=== PATIENT | female | born 1955 | race Caucasian/White ===

== ENCOUNTER 2019-08-08 11:18 | Outpatient (CLI) | payer OTHER, SELFPAY ==
--- NOTE | ~2019-08-08 | DEXA_ITS ---
Bone Density Report Name: Stacy Bush Age: 63 Sex: Female Ethnicity: White Date of : 1955 Indication: postmenopausal; height loss; inflammatory bowel disease; hysterectomy; Referring Provider: Shailesh, Ayleen Littlejohn Study: Bone densitometry was performed. Exam Date: August 08, 2019 Accession number: [id number] Bone Density: Region BMD T-score Z-score Classification AP Spine (L1-L4) 1.079 0.3 2.0 Normal Femoral Neck (Left) 0.651 -1.8 -0.3 Osteopenia Total Hip (Left) 0.821 -1.0 0.2 Normal Total Hip Bilateral Avg 0.863 -0.7 0.5 Normal Femoral Neck (Right) 0.763 -0.8 0.7 Normal Total Hip (Right) 0.904 -0.3 0.8 Normal World Health Organization criteria for BMD impression classify patients as: Normal (T-score at or above -1.0), Osteopenia (T-score between -1.0 and -2.5), or Osteoporosis (T-score at or below -2.5). 10-year Fracture Risk(1): Major Osteoporotic Fracture 8.8% Hip Fracture 1.1% Reported Risk Factors: [place] (), Neck BMD=0.651, BMI=22.5 (1) FRAX(R) Version 3.08. Fracture probability calculated for an untreated patient. Fracture probability may be lower if the patient has received treatment. Clinical Information Provided by Patient: Has the following medical conditions: Inflammatory bowel diseases, Hysterectomy Patient maximum height was 68 Menopause Age: 37 No regular weight bearing exercise Does not regularly consume dairy products Drinks caffeinated beverages Onset of menses at age 18 Number of children 3 Impression: The patient has low bone mass, based on the Left Femoral Neck T-score. The patient has an estimated ten-year risk of hip fracture of 1.1% and an estimated ten-year risk of major fracture of 8.8%, based on the WHO FRAX algorithm. Discussion: BONE DENSITY IS LOW AT ONE OR MORE SKELETAL SITES. This patient's lowest T-score is low at one or more skeletal sites. It meets the World Health Organization's (WHO) criteria for ?low bone mass? (T-score between -1.0 and -2.5). The patient's 10-year risk of fracture as calculated by FRAX is less than the threshold where pharmacological therapy is recommended by the National Osteoporosis Foundation (NOF). However, all treatment decisions require clinical judgment and consideration of individual patient factors, including patient preferences, comorbidities, previous drug use, risk factors not captured in the FRAX model (e.g., frailty, falls, vitamin D deficiency, increased bone turnover, interval significant decline in bone density) and possible under or overestimation of fracture risk by FRAX. The patient should follow a healthful lifestyle (good nutrition with adequate calcium and vitamin D, and appropriate weight-bearing exercise). Follow-Up: Consider repeating this study in 2 to 3 years to reassess this patient's
--- NOTE | ~2019-08-08 | MMUS_ITS ---
EXAMINATION: MM diagnostic yessenia BI w bharat, US breast BI complete HISTORY: Breast pain. Palpable nodules. TECHNIQUE: Additional 3-D tomosynthesis images of the breasts were performed and synthetic 2-D images were generated. CAD analysis was submitted and interpreted. High resolution bilateral breast ultraso und was performed. COMPARISON: None FINDINGS: MAMMOGRAPHIC FINDINGS: Breast composed of scattered areas of fibroglandular density. Architectural distortion in either juan m st to suggest malignancy. ULTRASOUND: Right breast ultrasound: In the upper outer quadrant of the right breast there is a 3 mm cyst. Also in the upper outer quadran t there is a 6 mm intramammary lymph node. Left breast ultrasound: Normal heterogeneous echotexture without focal solid or cystic mass. IMPRESSION: 1. No mammographic or sonographic evidence for malignancy in either breast. 2. Routine yearly screening mammogram and regular clinical breast examination are recommended. BI-RADS Category 2: Benign finding(s). Reviewed, dictated and finalized at location A. IMPRESSION: 1. No mammographic or sonographic evidence for malignancy in either breast. 2. Routine yearly screening mammogram and regular clinical breast examination a re recommended. BI-RADS Category 2: Benign finding(s).
== END 2019-08-08 11:19 | disposition home or self-care (01) ==
PROVIDERS: PCP Family Medicine Adolescent Medicine; Visit Provider Nurse Practitioner Obstetrics & Gynecology
DX: N64.4 Mastodynia (principal); Z13.820 Encounter for screening for osteoporosis; M85.852 Other specified disorders of bone density and structure, left thigh
CPT/HCPCS: 76641; 77062; 77066; 77080; G0279

== ENCOUNTER 2019-10-11 02:56 | Inpatient (IN) | payer OTHER, SELFPAY ==
--- NOTE | ~2019-10-11 | XR_ITS ---
EXAMINATION: XR abdomen NG/feed tube insert DATE: 10/11/2019 06:21 INDICATION: Nasogastric tube placement TECHNIQUE: A supine view of the abdomen and lower chest was obtained for evaluation of feeding tube placement. COMPARISON: None. FINDINGS: Nasogastric tube with tip in proximal side port in the body of the stomach. Biliary stent and cholecy stectomy clips project over the right upper quadrant. Gas-filled loops of bowel which do not appear f rankly dilated in the abdomen and visualized upper pelvis. Some excreted contrast is seen at the bila teral renal collecting systems from earlier contrast-enhanced CT. Visualized lungs are clear. No pleu ral effusion. Heart size is normal. IMPRESSION: 1. Nasogastric tube in the stomach. Reviewed, dictated and finalized at location A.
--- NOTE | ~2019-10-11 | XR_ITS ---
EXAMINATION: XR abdomen/kub 1V DATE: 10/13/2019 06:07 INDICATION: Small bowel obstruction. TECHNIQUE: A supine view of the abdomen was obtained. COMPARISON: 10/12/2019 FINDINGS: Oral contrast has advanced and is now distributed throughout the colon to the rectum. No appreciable residual oral contrast material within the small bowel. There are a few persistent gas-filled but not frankly dilated loops of small bowel in the left abdomen. Cholecystectomy clips and biliary stent in the right upper quadrant. IMPRESSION: 1. A few gas-filled but not frankly dilated loops of small bowel with oral contrast having now advanc ed in a delayed manner into the colon consistent with either ileus or partial small bowel obstruction . Reviewed, dictated and finalized at location A. IMPRESSION: 1. A few gas-filled but not frankly dilated loops of small bowel with oral cont rast having now advanced in a delayed manner into the colon consistent with eit her ileus or partial small bowel obstruction.
--- NOTE | ~2019-10-11 | XR_ITS ---
EXAMINATION: XR abdomen obstructive series DATE: 10/11/2019 14:47 INDICATION: Epigastric abdominal pain. TECHNIQUE: Upright and supine views of the abdomen were obtained. COMPARISON: CT abdomen and pelvis 10/11/2019 FINDINGS: There are multiple dilated loops of small bowel. The colon is decompressed. There is an int ernal biliary stent in expected position. Surgical clips in the right upper quadrant are likely from cholecystectomy. The nasogastric tube tip is in the stomach. No free intraperitoneal gas. IMPRESSION: 1. Persistently dilated small bowel, consistent with small bowel obstruction. Reviewed, dictated and finalized at location B.
--- NOTE | ~2019-10-11 | CT_ITS ---
EXAMINATION: CT abdomen pelvis w con DATE: 10/11/2019 04:25 INDICATION: Left upper quadrant abdominal pain. TECHNIQUE: Computed tomography (CT) of the abdomen and pelvis was performed with 100 mL Omnipaque 350 intravenous contrast. Automated exposure control and iterative reconstruction technique were employe d. The dose-length product was 292.36 mGy-cm. COMPARISON: CT abdomen 03/27/2008 FINDINGS: The visualized portions of the lung bases demonstrate mild atelectasis. No pleural effusion . The heart size is normal. No pericardial effusion. There is a 10 mm cyst in the liver. There is a 1 2 mm lesion of low attenuation in right hepatic lobe. Pneumobilia is noted. There is an internal bili nani stent in expected position. The pancreas, spleen, and adrenal glands are normal. There is a 3 mm stone in right kidney. There are cysts in left kidney measuring up to 15 mm. There is diverticulosis of the colon without evidence of diverticulitis. The appendix is not visualized. There are multiple d ilated loops of small bowel containing desiccated stool with focal transition point in the pelvis at a small bowel anastomosis. The colon is decompressed. There are no pathologically enlarged lymph node s. There is no free intraperitoneal fluid. There is severe lumbar spondylosis. IMPRESSION: 1. Small bowel obstruction. 2. 12 mm lesion of low attenuation in right hepatic lobe, which may be benign or less likely malignan t. Abdomen MRI without and with contrast is recommended. Reviewed, dictated and finalized at location B. IMPRESSION: 1. Small bowel obstruction. 2. 12 mm lesion of low attenuation in right hepatic lobe, which may be benign o r less likely malignant. Abdomen MRI without and with contrast is recommended.
--- NOTE | ~2019-10-11 | XR_ITS ---
EXAMINATION: XR abdomen obstructive series DATE: 10/12/2019 11:04 INDICATION: Small bowel obstruction and vomiting TECHNIQUE: Frontal supine and upright views of the abdomen were obtained. COMPARISON: 10/11/2019 FINDINGS: Nasogastric tube tip in proximal side port in the body of the stomach. Biliary stent and cholecystect oz clips in the right upper quadrant. There are several loops of dilated gas-filled small bowel in t he abdomen consistent with small bowel obstruction. Small amount of gas and stool scattered throughou t the colon. No free intraperitoneal gas. Lung bases are clear. Heart size is normal. Mild lumbar lev oscoliosis with moderate to severe spondylosis. IMPRESSION: 1. Persistent dilated small bowel consistent with small bowel obstruction. Reviewed, dictated and finalized at location A.
--- NOTE | ~2019-10-11 | XR_ITS ---
EXAMINATION: XR sm bowel follow through WS EXAM DATE: 10/12/2019 19:01 INDICATION: Small bowel obstruction. TECHNIQUE: [employer]ist radiograph was acquired. Small bowel series was performed with water-soluble solut ion. Spot images of the terminal ileum were acquired. There is no prior study for comparison. FINDINGS: There are cholecystectomy clips. There is a biliary stent and a nasogastric tube through wh ich the contrast was injected. On the 15 minute projection contrast is seen within the stomach and no rmal calibered proximal jejunum. At 30 minutes time, contrast beginning to enter significantly disten ded mid jejunal loops which continue to opacify to 6.5 hours time, at which time the study was ended. No normal calibered ileum was identified during dose 6.5 hours, and no contrast within the colon. IMPRESSION: Small bowel obstruction. Consider KUB in the morning. Reviewed, dictated and finalized at location A.
[2019-10-11 02:58] VITALS: BP 140/79; PULSE 91; RESP 24; TEMP 36.9; O2SAT 100
--- NOTE | 2019-10-11 03:15 | ED.ABDPAIN ---
HPI - Abdominal Pain General Chief Complaint: Abdominal Pain Stated Complaint: abdominal pain Time Seen by Provider: 10/11/19 03:03 History of Present Illness HPI narrative: Left sided abdominal pain radiating into the pelvis for the past couple of hours. Associated with severe nausea. She has had prior episodes, but denies further evaluation. She does report chronic abdominal issues. She recently had stents placed in the pancreatic duct(s) on both sides . No constipation, diarrhea, fever. Related Data Home Medications Medication Instructions Recorded Confirmed gabapentin 300 mg PO TID 10/11/19 Allergies Allergy/AdvReac Type Severity Reaction Status Date / Time No Known Allergies Allergy Unknown Verified 10/11/19 04:07 Review of Systems Review of Systems: All systems reviewed & are unremarkable except as noted in HPI and below Constitutional: Constitutional: Denies fever(s) Cardiovascular: Cardiovascular: Denies chest pain Respiratory: Respiratory: Denies dyspnea Gastrointestinal: Gastrointestinal: Reports abdominal pain, Denies constipation, Denies diarrhea, Reports nausea and Denies vomiting Genitourinary: Genitourinary: Denies hematuria and Denies dysuria Musculoskeletal: Musculoskeletal: Denies back pain Neurologic: Denies dizziness and Denies weakness ON LICENSE OF [facility] Surgical History Surgical History History of appendectomy History of cholecystectomy Exam Const: General: no acute distress and alert Orientation/consciousness: patient oriented x3 HENMT: Head: normal to inspection Resp: Effort & Inspection: normal respiratory effort Auscultation: clear to auscultation bilaterally Cardio: Rate: regular rate Rhythm: regular rhythm GI: Inspection: non-distended GI Palp: Yes Soft to palpation, Yes Tenderness to palpation present (GI) (LUQ), No Guarding due to palpation present (GI) and No Rebound tenderness present Skin: General skin exam: normal color Neuro: General: patient oriented x3, moves all extremities and CN's II-XI intact bilaterally Speech: normal speech Extrem: General: normal to inspection Course Vital Signs Vital signs: Vital Signs Temperature 36.9 C 10/11/19 02:58 Pulse Rate 91 10/11/19 02:58 Respiratory Rate 24 H 10/11/19 02:58 Blood Pressure 140/79 10/11/19 02:58 Pulse Oximetry 100 10/11/19 02:58 Temperature 36.9 C 10/11/19 02:58 Pulse Rate 61 08/12/20 06:00 Respiratory Rate 14 10/11/19 06:00 Blood Pressure 109/58 L 10/11/19 06:00 Pulse Oximetry 98 10/11/19 06:00 MDM - Abdominal Pain Differential Diagnosis Differential diagnosis: Likely calculus of kidney, constipation, diverticulitis, pancreatitis and small bowel obstruction Medical Records Attestation: I reviewed the patient's medical records. Lab Data Attestation: I reviewed the patient's lab results. Result diagrams: 10/11/19 03:38 10/11/19 03:38 Labs: Lab Results 10/11/19 10/11/19 10/11/19 Range/Units 03:38 03:38 04:09 WBC 9.6 (4.5-10.0) K/mm3 RBC 4.64 (4.2-5.4) M/mm3 Hgb 14.3 (12.0-15.0) g/dL Hct 42.5 (37.0-47.0) % MCV 91.6 (80-100) fl MCH 30.8 (26-34) pg MCHC 33.6 (32-36) g/dl RDW 11.5 (11.5-14.5) % Plt Count 263 (150-375) k/mm3 MPV 10.3 (7.4-10.4) fl Immature Gran % (Auto) 0.3 (0-0.5) % Neut % (Auto) 74.4 H (45.5-73.1) % Lymph % (Auto) 16.8 L (18.3-44.2) % Story % (Auto) 6.5 (2.6-8.5) % Eos % (Auto) 1.5 (0-4.4) % Baso % (Auto) 0.5 (0.2-1.2) % Lymph # (Auto) 1.61 (0.9-3.2) K/mm3 Story # (Auto) 0.6 (0.1-0.6) K/mm3 Eos # (Auto) 0.1 (0-0.3) K/mm3 Baso # (Auto) 0.1 (0.0-0.1) K/mm3 Abs Immat Gran (auto) 0.03 (0.00-0.031) K/mm3 Absolute Neuts (auto) 7.1 H (1.3-6.7) K/mm3 Absolute Nucleated RBC 0.0 (0.0-0.012) K/mm3 Nucleated RBC % 0.0 (0.0-0.2) % Sodium 139 (137-1
[2019-10-11 03:45] LABS: Basophils Absolute Auto 0.1 K/mm3 (0.0-0.1); Basophils Percent Auto 0.5 % (0.2-1.2); Eosinophils Absolute Auto 0.1 K/mm3 (0-0.3); Eosinophils Percent Auto 1.5 % (0-4.4); Hematocrit 42.5 % (37.0-47.0); Hemoglobin 14.3 g/dL (12.0-15.0); Immature Granulocyte Absolute 0.03 K/mm3 (0.00-0.031); Immature Granulocyte Percent A 0.3 % (0-0.5); Lymphocytes Absolute Auto 1.61 K/mm3 (0.9-3.2); Lymphocytes Percent Auto 16.8 % (18.3-44.2); Mean Corpuscular HGB Conc 33.6 g/dl (32-36); Mean Corpuscular Hemoglobin 30.8 pg (26-34); Mean Corpuscular Volume 91.6 fl (80-100); Mean Platelet Volume 10.3 fl (7.4-10.4); Monocytes Absolute Auto 0.6 K/mm3 (0.1-0.6); Monocytes Percent Auto 6.5 % (2.6-8.5); Neutrophils Absolute Auto 7.1 K/mm3 (1.3-6.7); Neutrophils Percent Auto 74.4 % (45.5-73.1); Platelet Count Result 263 k/mm3 (150-375); Red Blood Count 4.64 M/mm3 (4.2-5.4); Red Cell Distribution Width 11.5 % (11.5-14.5); White Blood Count 9.6 K/mm3 (4.5-10.0)
[2019-10-11 04:04] LABS: Alanine Aminotransferase 52 U/L (4-35); Albumin Level 4.6 g/dL (3.5-5.1); Alkaline Phosphatase 97 U/L (38-126); Anion Gap 11 mmol/L (8-16); Aspartate Amino Transferase 33 U/L (14-36); Bilirubin,Total 0.8 mg/dL (0.2-1.3); Blood Urea Nitrogen 16 mg/dL (7-17); Calcium 9.6 mg/dL (8.4-10.2); Carbon Dioxide 25 mmol/L (22-30); Chloride 103 mmol/L (98-107); Estimated CRCL calculation 53 ml/min; Estimated Glomerular Filt Rate > 60; Glucose 144 mg/dL (65-105); Lipase 117 U/L (23-300); Potassium 3.8 mmol/L (3.4-5.0); Sodium 139 mmol/L (137-145)
[2019-10-11 04:21] LABS: Add Urine Microscopic? YES; Appearance Urine Clear (Clear); Bilirubin Urine Negative (Negative); Blood Urine Negative (Negative); Color Urine Straw (Yellow); Glucose Urine UA Negative (Negative); Ketones Urine Negative (Negative); Leukocyte Esterase Ur 1+ LEU/UL (Negative); Nitrate Urine Negative (Negative); Protein Urine Negative (Negative); RBC Urine 0-2 /hpf (0-2); Specific Grav Ur 1.013 (1.001-1.035); Squamous Epithelial Cell Urine Rare /hpf (Few); WBC Urine 0-3 /hpf
[2019-10-11 05:00] VITALS: BP 119/65; PULSE 69; RESP 18; O2SAT 100
[2019-10-11] MEDS: MORPHINE SULFATE 4 MG/ML INJ IV PUSH ×4 (05:45→19:44)
[2019-10-11] MEDS: LIDOCAINE HCL 2% VISC SOLN 15 ML UDC (05:45)
[2019-10-11] MEDS: BENZOCAINE/TETRACAINE SPRAY (*SP) 56 ML AEROSOL 1 SPRAY (05:46)
[2019-10-11] MEDS: ONDANSETRON INJ 4 MG/2 ML VIAL (05:59)
[2019-10-11 06:00] VITALS: BP 109/58; PULSE 61; RESP 14; O2SAT 98
[2019-10-11] MEDS: SODIUM CHLORIDE 0.9% IV 1,000 ML 1000 ML (06:15)
--- NOTE | 2019-10-11 07:04 | ADMGEN ---
This patient, Stacy Bush, was admitted to Medical Room 341-01. Patient/family oriented to hospital policies and general routines including ID bracelet, bed and alarms, visiting hours, pain management, procedures, bathroom and other care routines, personal items, smoking policy, room service/diet, and visiting hours. Valuables list has been completed. Information on how to activate the Rapid Response Team has been discussed. Patient/Family are encouraged to report perceived risks to care and to ask questions if they do not understand what they are told or what they should do.
[2019-10-11 07:14] VITALS: BP 136/64; PULSE 76; RESP 18; TEMP 36.9; O2SAT 100; BMI 22.4
[2019-10-11] MEDS: LACTATED RINGERS 1,000 ML 100 ML IV CONT ×2 (08:25→19:22)
[2019-10-11] MEDS: GABAPENTIN 300 MG CAPSULE PO ×2 (12:10→16:58)
[2019-10-11 14:00] VITALS: BP 132/68; PULSE 78; RESP 18; TEMP 36.8; O2SAT 100
--- NOTE | 2019-10-11 14:57 | PM.IMHP ---
H&P: HPI History of Present Illness Date/Time: 10/11/19 07:57 Chief complaint: sbo Narrative: Stacy Bush is a 63 year old female Who presented early this morning to the [place] emergency room with complaints of upper abdominal pain. Patient states that she had a fairly normal supper last night eating green beans and roasted potatoes. She was feeling all okay when she had supper but subsequently woke up in the middle the night with fairly severe abdominal pain across the mid abdomen into the left upper quadrant. Because of this pain she came to the emergency room. She complained mostly ofLeft sided abdominal pain radiating into the pelvis for the past couple of hours. This was associated with severe nausea. She has had prior episodes, but denies further evaluation. She does report chronic abdominal issues. She recently had stents placed in the pancreatic duct(s) on both sides . No constipation, diarrhea, fever. Also significant to note is that the patient states that she has been having some trouble with biliary stenosis ever since her laparoscopic cholecystectomy in 2012. She sees Dr. Garcia [facility]. Apparently he has been periodically placing biliary stent or pancreatic stents. She currently had 1 placed in July of this year and this time she is planning have it left in for 6-8 weeks. She has another appointment with him on around October 22. Review of Systems Constitutional: Constitutional: Reports as per HPI and Denies headache(s) Eyes: Eyes: Denies loss of vision and Denies eye pain ENT: Reports Normal hearing present, Denies change in voice, Denies dizziness and Denies headache(s) Cardiovascular: Cardiovascular: Denies chest pain and Denies dyspnea Respiratory: Respiratory: Denies dyspnea and Denies wheezing Gastrointestinal: Gastrointestinal: Reports as per HPI, Reports abdominal pain, Denies melena, Denies hematochezia, Denies constipation, Reports GI cramping, Denies dysphagia, Reports loose stools ( Yesterday she had pretty significant black loose stools), Reports nausea and Denies odynophagia Musculoskeletal: Musculoskeletal: Denies back pain and Denies arthralgias Neurologic: Reports Normal hearing present, Denies dizziness, Denies headache(s), Denies loss of vision and Denies memory loss Psychiatric: Psychiatric: Denies memory loss and Denies panic attacks Endocrine: Endocrine: Reports no additional endocrine complaints Hematologic/Lymphatic: Hematologic/Lymphatic: Reports no additional hematologic/lymphatic complaints Allergic/Immunologic: Allergic/Immunologic: Denies wheezing PMFSH Past Medical History Medical History (Updated 10/11/19 @ 15:09 by Xavier Blcak MD) Biliary stenosis (03/01/12) Surgical History Surgical History (Updated 10/11/19 @ 15:08 by Xavier Black MD) History of appendectomy History of cholecystectomy History of hysterectomy for benign disease Social History Social History Smoking status: Never smoker Alcohol intake: never Substance use: never Spiritual care concerns: No Meds Home Medications and Allergies Home Medications Medication Instructions Recorded Confirmed Type gabapentin 300 mg PO TID 10/11/19 10/11/19 History Allergies Allergy/AdvReac Type Severity Reaction Status Date / Time No Known Allergies Allergy Unknown Verified 10/11/19 04:07 Vital Signs Vital Signs - 24 hr 10/11/19 02:58 10/11/19 05:00 10/11/19 06:00 Temperature 36.9 C Pulse Rate 91 69 61 Respiratory Rate 24 H 18 14 Blood Pressure 140/79 119/65 109/58 L Pulse Oximetry 100 100 98 10/11/19 07:14 10/11/19 14:00 Temperature 36.9 C 36.8 C Pulse Rate 76 78 Respiratory Rate 18 18 Blood Pressure 136/64 132/68 Pulse Oximetry 100 100 Exam Const: General: cooperative, no acute distress, well developed, alert and awake Nutritional Appearance: well nourished Orientatio
[2019-10-11 16:21] VITALS: BMI 22.4
[2019-10-11 16:30] VITALS: BMI 22.4
--- NOTE | 2019-10-11 17:27 | PCDIET ---
Nutrition Follow-Up Complete: Altered GI fx r/t removal of gallbladder and rounds of antibiotics as evidence by loss of oral tolerance of foods, need for low fodmap diet, bloating, gas, diarrhea with foods Diet advancement with better PO tolerance Additional Notes: Pt on low fodmap for six years, shortly after removal of gallbladder. Never went back to MD and has been on diet since. Continues to loose foods she once tolerated. Does not do dairy, gluten, or sugar, even fruit sugar. C/O foul gas, bloating, diarrhea. States it was a stressful time over these last several years as pt was caring for sick and mother in law who are now passes. No hx of autoimmune in family. Not sure of blood test for celiac. No testing for SIBO, although pt has has had hx of surgeries and antibiotic use. Recommend r/o celiac and SIBO if not done Agree with NPO diet. Pt may benefit from digestive enzymes with loss of gallbladder. Following diet, PO intake and tolerance, wt every three days
[2019-10-11] MEDS: MAGNESIUM HYDROXIDE SUSP 30 ML UDC FEED TUBE (17:34)
[2019-10-11] MEDS: ONDANSETRON INJ 4 MG/2 ML VIAL IV PUSH (18:10)
[2019-10-11 22:00] VITALS: BP 108/62; PULSE 72; RESP 18; TEMP 36.1; O2SAT 100
[2019-10-12] MEDS: ONDANSETRON INJ 4 MG/2 ML VIAL IV PUSH ×4 (04:01→18:22)
[2019-10-12 04:21] VITALS: BP 114/71; PULSE 102; RESP 18; TEMP 37.1; O2SAT 100
[2019-10-12] MEDS: LACTATED RINGERS 1,000 ML 100 ML IV CONT ×2 (05:27→15:31)
[2019-10-12 06:04] LABS: Basophils Percent Auto 0.2 % (0.2-1.2); Hematocrit 40.7 % (37.0-47.0); Hemoglobin 13.9 g/dL (12.0-15.0); Immature Granulocyte Absolute 0.03 K/mm3 (0.00-0.031); Immature Granulocyte Percent A 0.3 % (0-0.5); Lymphocytes Absolute Auto 0.81 K/mm3 (0.9-3.2); Lymphocytes Percent Auto 7.3 % (18.3-44.2); Mean Corpuscular HGB Conc 34.2 g/dl (32-36); Mean Corpuscular Hemoglobin 31.4 pg (26-34); Mean Corpuscular Volume 92.1 fl (80-100); Mean Platelet Volume 10.6 fl (7.4-10.4); Monocytes Absolute Auto 0.8 K/mm3 (0.1-0.6); Monocytes Percent Auto 7.4 % (2.6-8.5); Neutrophils Absolute Auto 9.4 K/mm3 (1.3-6.7); Neutrophils Percent Auto 84.8 % (45.5-73.1); Platelet Count Result 254 k/mm3 (150-375); Red Blood Count 4.42 M/mm3 (4.2-5.4); Red Cell Distribution Width 11.7 % (11.5-14.5); White Blood Count 11.1 K/mm3 (4.5-10.0)
[2019-10-12 06:15] LABS: Lactic Acid 1.3 mmol/L (0.7-2.1)
[2019-10-12 06:16] LABS: Anion Gap 6 mmol/L (8-16); Blood Urea Nitrogen 15 mg/dL (7-17); Calcium 8.5 mg/dL (8.4-10.2); Carbon Dioxide 28 mmol/L (22-30); Chloride 103 mmol/L (98-107); Estimated CRCL calculation 66 ml/min; Estimated Glomerular Filt Rate > 60; Glucose 125 mg/dL (65-105); Magnesium 1.9 mg/dL (1.6-2.3); Potassium 3.9 mmol/L (3.4-5.0); Sodium 137 mmol/L (137-145)
[2019-10-12] MEDS: GABAPENTIN 300 MG CAPSULE PO (08:16)
[2019-10-12] MEDS: MORPHINE SULFATE 4 MG/ML INJ 2 MG IV PUSH (08:32)
--- NOTE | 2019-10-12 11:55 | PM.PNGS ---
Progress Note: A&P Assessment and Plan (1) SBO (small bowel obstruction): Onset Date: 10/11/19 Code(s): K56.609 - Unspecified intestinal obstruction, unspecified as to partial versus complete obstruction Status: Acute Assessment and Plan: today's plain abdominal film shows still some dilated loops of small bowel in the central abdomen. This is different than yesterday so will proceed to a Gastrografin small-bowel follow-through. This should delineate whether not there is complete obstruction or not. Patient knows that if this does not go through to the colon we may need to proceed to surgical intervention. Explained that I would start out doing laparoscopy and see if we could proceed to free up the small bowel in the pelvis with this. If not she may need a laparotomy and I would typically start the umbilicus and go down to the pubic bone for the incision. Await results of small-bowel follow-through through the NG tube (2) Biliary stenosis: Onset Date: 03/01/12 Code(s): K83.1 - Obstruction of bile duct Status: Acute Assessment and Plan: Patient scheduled to follow up with her hvac service manager regarding this in approximately 1 - 2 weeks. Stent is in appropriate location on the CT scan. Liver function tests done on admission were normal except for slightly elevated AST. Subjective Subjective Date/Time Seen: 10/12/19 11:55 Patient states that she slept well last night but woke up with cramping in the abdomen for a.m. this morning. She states that once she gets pain medicine gets comfortable she sleeps for a good long time but then still has pain across her upper mid back somewhat exactly posterior to the epigastrium. Patient did not have any bowel movements overnight despite milk a magnesia down the NG tube last evening. She states she has not felt well enough to walk in the hallway she could barely walk to the bathroom. Review of Systems Constitutional: Constitutional: Reports no additional constitutional complaints ENT: Reports other (Mucous Membranes moist.) Cardiovascular: Cardiovascular: Denies dyspnea Respiratory: Respiratory: Denies pain on inspiration and Denies dyspnea Gastrointestinal: Gastrointestinal: Reports constipation, Reports GI cramping, Denies dysphagia and Denies nausea Comments: Patient states she does not feel bloated. Musculoskeletal: Musculoskeletal: Reports other (No calf swelling or edema) Integumentary/Breasts: Skin/Breast: Reports system reviewed and no additional complaints, except as docu Exam Const: General: cooperative, no acute distress, alert and awake Orientation/consciousness: patient oriented x3 HENMT: Mouth: Yes moist mucous membranes Neck: Neck: normal visual inspection Chest: Chest palpation & inspection: normal inspection of the chest Resp: Effort & Inspection: normal respiratory effort Auscultation: clear to auscultation bilaterally Cardio: Jugular venous distension: no JVD Rate: regular rate Rhythm: regular rhythm GI: Inspection: normal to inspection and scar ( Right lower quadrant from appendectomy) GI Palp: No abdominal tenderness, Yes Soft to palpation, No Tenderness to palpation present (GI) and No Hernia present Auscultation: normal bowel sounds Rectal Exam: deferred Neuro: General: patient oriented x3 and moves all extremities Speech: normal speech Extrem: General: normal exam except as noted Psych: Mental Status: mental status grossly normal Speech and movement: Normal speech and movement present Affect: normal affect Thought content: Yes Normal thought content present Objective Data Vital Signs Vital Signs: Vital Signs - 24 hr 10/11/19 14:00 10/11/19 22:00 10/12/19 04:21 Temperature 36.8 C 36.1 C L 37.1 C Pulse Rate 78 72 102 H Respiratory Rate 18 18 18 Blood Pressure 132/68 108/62 114/71 Pulse Oximetry 100 100 100 Intake/Output Intake/Output: Intake & Output 10/09/1910/09
[2019-10-12] MEDS: MORPHINE SULFATE 4 MG/ML INJ IV PUSH ×2 (14:06→17:17)
[2019-10-12 15:36] VITALS: BP 122/72; PULSE 80; RESP 16; TEMP 36.8; O2SAT 98
[2019-10-12 20:09] VITALS: BP 125/57; PULSE 74; RESP 16; TEMP 36.9; O2SAT 98
[2019-10-12] MEDS: PANTOPRAZOLE SODIUM IV 40 MG VIAL IV PUSH (20:30)
[2019-10-12] MEDS: LACTATED RINGERS 1,000 ML 150 ML IV CONT (23:02)
--- NOTE | 2019-10-13 | ECG_ITS ---
Measurements Intervals [place] Rate: 70 P: 63 [place]: 155 QRS: -20 QRSD: 96 T: -2 QT: 367 QTc: 397 Interpretive Statements SINUS RHYTHM DELAYED PRECORDIAL R/S TRANSITION CONSIDER INFERIOR INFARCT, AGE INDETERMINATE ABNORMAL ECG Electronically Signed On 10-13-2019 7:10:15 CDT by Saad Salcido D.O.
[2019-10-13 05:43] LABS: Basophils Percent Auto 0.5 % (0.2-1.2); Eosinophils Absolute Auto 0.1 K/mm3 (0-0.3); Eosinophils Percent Auto 0.8 % (0-4.4); Hematocrit 37.7 % (37.0-47.0); Hemoglobin 12.5 g/dL (12.0-15.0); Immature Granulocyte Absolute 0.03 K/mm3 (0.00-0.031); Immature Granulocyte Percent A 0.3 % (0-0.5); Lymphocytes Absolute Auto 1.37 K/mm3 (0.9-3.2); Lymphocytes Percent Auto 15.6 % (18.3-44.2); Mean Corpuscular HGB Conc 33.2 g/dl (32-36); Mean Corpuscular Hemoglobin 31.2 pg (26-34); Mean Platelet Volume 10.5 fl (7.4-10.4); Monocytes Absolute Auto 0.9 K/mm3 (0.1-0.6); Monocytes Percent Auto 10.2 % (2.6-8.5); Neutrophils Absolute Auto 6.4 K/mm3 (1.3-6.7); Neutrophils Percent Auto 72.6 % (45.5-73.1); Platelet Count Result 204 k/mm3 (150-375); Red Blood Count 4.01 M/mm3 (4.2-5.4); Red Cell Distribution Width 11.8 % (11.5-14.5); White Blood Count 8.8 K/mm3 (4.5-10.0)
[2019-10-13] MEDS: LACTATED RINGERS 1,000 ML 150 ML IV CONT ×2 (05:51→12:53)
[2019-10-13 06:06] LABS: Lactic Acid 0.7 mmol/L (0.7-2.1)
[2019-10-13 06:09] LABS: Alanine Aminotransferase 27 U/L (4-35); Albumin Level 2.9 g/dL (3.5-5.1); Alkaline Phosphatase 56 U/L (38-126); Anion Gap 3 mmol/L (8-16); Aspartate Amino Transferase 19 U/L (14-36); Bilirubin,Total 0.9 mg/dL (0.2-1.3); Blood Urea Nitrogen 20 mg/dL (7-17); Calcium 8.1 mg/dL (8.4-10.2); Carbon Dioxide 30 mmol/L (22-30); Chloride 105 mmol/L (98-107); Estimated CRCL calculation 59 ml/min; Estimated Glomerular Filt Rate > 60; Glucose 96 mg/dL (65-105); Potassium 3.9 mmol/L (3.4-5.0); Sodium 138 mmol/L (137-145)
[2019-10-13 06:16] VITALS: BP 126/58; PULSE 77; RESP 16; TEMP 36.7; O2SAT 96
[2019-10-13] MEDS: GABAPENTIN 300 MG CAPSULE PO ×3 (08:34→16:07)
[2019-10-13] MEDS: MAGNESIUM HYDROXIDE SUSP 30 ML UDC FEED TUBE (08:34)
[2019-10-13] MEDS: PANTOPRAZOLE SODIUM IV 40 MG VIAL IV PUSH ×2 (08:34→20:46)
--- NOTE | 2019-10-13 09:34 | PM.PNGS ---
Progress Note: A&P Assessment and Plan (1) SBO (small bowel obstruction): Onset Date: 10/11/19 Code(s): K56.609 - Unspecified intestinal obstruction, unspecified as to partial versus complete obstruction Status: Acute Assessment and Plan: Today's plain abdominal film shows still some dilated loops of small bowel in the central abdomen But that the GI contrast got through to the colon in a delayed fashion. (See report). Because of this and the patient feeling better we will proceed with clamping the NG tube. I will give her 1 dose of milk of magnesia through the NG tube now. Will have the nurse give her of duplex suppository to see if we can get something started from the rectal side. Will have the patient be up and about more now that she is more comfortable. Patient will void pain medicine if possible. Will have the tissue in talked to the patient about a low-fiber diet is this is what we would send her home on. Will check back at around noon with the patient and nurse and if doing well consider removal of the NG tube in advancing the diet. We probably will not go home until tomorrow at the earliest. 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 I will try to forward records from and labs from this visit along with CT reports to the GI doctor in the [place] area. Stent is in appropriate location on the CT scan. Liver function tests done on admission were normal except for slightly elevated AST. Subjective Subjective Date/Time Seen: 10/13/19 07:34 Patient states that late evening 9 or 10:00 p.m. last night she began feeling better. She is not specifically notice passing flatus or having a bowel movement overnight. I talked to her night nurse and she states that she did not have take any pain medicine overnight. The patient has been up walking the halls where as she could do that before. Patient willing to take suppository this morning. And willing to try some liquids well the NG tube is clamped. Patient is on some dietary restrictions because of her continuing biliary problems. However, she believes she can limit the fiber in her diet and still have enough to eat. Review of Systems Constitutional: Constitutional: Reports as per HPI, Reports no additional constitutional complaints and Denies headache(s) Eyes: Eyes: Denies loss of vision and Denies eye pain ENT: Reports Normal hearing present, Denies change in voice, Denies dysphagia, Denies dizziness, Denies headache(s), Denies odynophagia and Reports other (Mucous Membranes moist.) Cardiovascular: Cardiovascular: Denies chest pain and Denies dyspnea Respiratory: Respiratory: Denies pain on inspiration, Denies dyspnea and Denies wheezing Gastrointestinal: Gastrointestinal: Denies abdominal pain, Denies belching, Reports constipation, Denies heartburn, Denies diarrhea and Reports vomiting ( X1 yesterday about an hour half after she received the Gastrografin dye ) Comments: vomiting: yes, X1 yesterday about an hour half after she received the Gastrografin dye through the NG tube. No more overnight. Genitourinary: Genitourinary: Denies hematuria and Denies nocturia Musculoskeletal: Musculoskeletal: Denies back pain, Denies arthralgias and Reports other (No calf swelling or edema) Integumentary/Breasts: Skin/Breast: Reports system reviewed and no additional complaints, except as docu Neurologic: Reports Normal hearing present, Denies dizziness, Denies headache(s), Denies loss of vision and Denies memory loss Psychiatric: Psychiatric: Denies memory loss and Denies panic attacks Endocrine: Endocrine: Reports no additional endocrine complaints Hematologic/Lymphatic: Hematologic/Lymphatic: Reports no additional hematologic/lymphatic complaint
--- NOTE | 2019-10-13 12:09 | PCNFU ---
Nutrition Follow-Up Complete: Altered GI fx r/t removal of gallbladder and rounds of antibiotics as evidence by loss of oral tolerance of foods, need for low fodmap diet, bloating, gas, diarrhea with foods Goal: Diet advancement with better PO tolerance Progressing towards goal. Pt current nutrition is Clear liquids. Nutrition recommendation: advance as tolerated to low fiber diet. Last recorded weight is 63 kg. Bowel Motility:10/12 +BM reported. Labs Reviewed:BUN 20, Alb 2.9 Meds Noted: Protonix,LR at 150 ml/hr Additional Notes: Patient educated on low fiber diet today. She did tolerate her clear liquids tray well. She discussed her weight loss with me of about 12 ibs since her surgery in August 2019. She states she has muscle milk at home and that she will start drinking that again for the additional protein and kcals. Monitoring: diet, PO intake and tolerance, wt every 5 days.
[2019-10-13 14:19] VITALS: BP 130/56; PULSE 74; RESP 14; TEMP 36.9; O2SAT 100
[2019-10-13] MEDS: ONDANSETRON INJ 4 MG/2 ML VIAL IV PUSH ×2 (17:53→22:12)
[2019-10-13 19:36] VITALS: BP 119/55; PULSE 73; RESP 16; TEMP 36.8; O2SAT 97
[2019-10-14] MEDS: ONDANSETRON INJ 4 MG/2 ML VIAL IV PUSH ×2 (02:28→07:36)
[2019-10-14 06:32] VITALS: BP 131/62; PULSE 75; RESP 16; TEMP 37.2; O2SAT 98
[2019-10-14 08:00] VITALS: PULSE 75; RESP 16; O2SAT 98
[2019-10-14] MEDS: PANTOPRAZOLE SODIUM IV 40 MG VIAL IV PUSH (08:09)
[2019-10-14] MEDS: GABAPENTIN 300 MG CAPSULE PO ×2 (09:16→12:53)
[2019-10-14 14:00] VITALS: BP 130/58; PULSE 75; RESP 18; TEMP 37.1; O2SAT 99
--- NOTE | 2019-10-14 14:14 | PM.DS ---
DS: Admitting Diagnosis Admitting Diagnosis Admitting Diagnosis: Partial small-bowel obstruction Indwelling biliary stent DS: Discharge Diagnosis Discharge Diagnosis (1) SBO (small bowel obstruction): Onset Date: 10/11/19 Code(s): K56.609 - Unspecified intestinal obstruction, unspecified as to partial versus complete obstruction Status: Acute Assessment and Plan: This resolved with conservative management including NG tube and bowel rest. (2) Biliary stenosis: Onset Date: 03/01/12 Code(s): K83.1 - Obstruction of bile duct Status: Acute Assessment and Plan: Patient follow with Dr. Baer in [place] regarding this. DS: Summary Hospital Course Reason for hospitalization: Partial small-bowel obstruction Hospital Course: patient had a fairly uneventful hospital course. She had an NG tube in for the 1st 2 days that she was here. Thus or small-bowel obstruction did not seem to be resolving completely I did a small bowel series with Gastrografin on her 2nd day in the hospital. This did not go through the normal amount of time but did go through by the following morning. She had bowel movements that 3rd day of hospitalization and had and significant proven in her symptoms. She was then advance slowly under diet and will send her home on a low residue diet. She talked to the dietitian about a low residue diet and has information on this. Also the night prior to discharge she had an episode which she describes as an her biliary attack symptoms period this is bloating in the upper left abdomen and discomfort radiating through to her back. I did take a check a lipase during admission and was normal. I wonder if this is some element of gastric outlet obstruction. Perhaps just functional with put pyloric spasm. Will send her home with [facility] and I asked her to try taking 1 of these if this happens again. She should then report what happens to her GI doctor in [place]( Dr. Ortiz). Status at Discharge Cognitive/behavioral status at discharge: normal Functional status at discharge: independent ambulation Overall status at discharge: patient is back to baseline Time Spent with Patient Time attestation: Total time spent providing and/or coordinating discharge services:32 min. Time spent: Greater than 30 minutes Specific discharge activities: Walking as much as possible for exercise. Diet to be low residue for least 1 week and then gradually advance. Instructed her to keep an appoint with Dr. Baer her GI doctor for her stent removal. I had then put all her radiology tests on a disc to be taken with her to his next appointment with him on October 22 or . Exam Const: General: cooperative, no acute distress, alert and awake Orientation/consciousness: patient oriented x3 HENMT: Mouth: Yes moist mucous membranes Eyes: General: appearance normal, both eyes and all related structures Other: not jaundice Neck: Neck: normal visual inspection and no JVD Lymphatic: lymphadenopathy not noted Chest: Chest palpation & inspection: normal inspection of the chest Resp: Effort & Inspection: normal respiratory effort Auscultation: clear to auscultation bilaterally Cardio: Jugular venous distension: no JVD Rate: regular rate Rhythm: regular rhythm GI: Inspection: scar ( Right lower quadrant scar from appendectomy) GI Palp: Yes Soft to palpation and No Guarding due to palpation present (GI) Auscultation: normal bowel sounds Rectal Exam: deferred Other: Port sites scars scattered on the abdomen from previous laparoscopy. Neuro: General: patient oriented x3 and moves all extremities Speech: normal speech Extrem: General: normal exam except as noted Psych: Mental Status: mental status grossly normal Speech and movement: Normal speech and movement present Affect: normal affect Thought content: Yes Normal thought content present DS: Data Data Completed and Pe
--- NOTE | 2019-10-14 14:42 | PC.NURSE ---
Addendum entered by Mary Roy RN 10/14/19 15:11: Only has a feeling of fullness. Original Note: Patient tolerated low residue diet for lunch with no problems noted.
== END 2019-10-14 15:45 | disposition home or self-care (01) | DRG 390 ==
LOC: ANHED 06:15 → ANH3MED 06:53
PROVIDERS: Admitting Provider Surgery; Emergency Provider Emergency Medicine; PCP Family Medicine Adolescent Medicine; Visit Provider Surgery
DX: K56.600 Partial intestinal obstruction, unspecified as to cause (principal); Z90.49 Acquired absence of other specified parts of digestive tract; Z90.710 Acquired absence of both cervix and uterus
CPT/HCPCS: 36415; 51701; 74018; 74019; 74177; 74250; 80048; 80053; 81001; 83605; 83690; 83735; 85025; 86850; 86900; 86901; 93005; 96361; 96374; 96375; 99285; A9270; C9113; G0378; J2270; J2405; J3010; J7030; J7120; Q9967

== ENCOUNTER 2019-10-15 13:41 | Inpatient (IN) | payer OTHER, SELFPAY ==
--- NOTE | ~2019-10-15 | CT_ITS ---
EXAMINATION: CT abdomen pelvis w con DATE: 10/15/2019 15:16 INDICATION: TECHNIQUE: Computed tomography (CT) of the abdomen and pelvis was performed without intravenous contr ast. Automated exposure control and iterative reconstruction technique were employed. Exam dose: 311 .93 mGy-cm total exam DLP. COMPARISON: None. FINDINGS: Mild discoid atelectasis or scarring at the lung bases. Normal heart size. No pericardial o r pleural effusion. Status post cholecystectomy. There is an internal biliary stent. No bile duct dilatation or pancreati c duct dilatation is evident. There is some air in the bile and pancreatic ducts. The liver, spleen, pancreas, and adrenal glands are otherwise unremarkable. There is a 9.5 mm left hepatic cyst along the anterior aspect of the fissure of the ligamentum teres. There is an 8 mm cyst at the upper pole of the left kidney. There is a 12 mm cyst at the lower pole of the left kidney. There is a 3 mm lower pole right renal calculus. There is a pinpoint lower pole left renal calculus; additional punctate stones are difficult to defin itively exclude on this post-contrast examination. There is atherosclerotic calcification of the abdominal aorta. No intraperitoneal or retroperitoneal or pelvic mass lesion or adenopathy there is small bowel dilatation with fluid containing segments me asuring up to 3.6 cm diameter, with multiple small bowel air-fluid levels. There are multiple diverticula of the colon; no CT evidence of diverticulitis is detected. Mild abdominal and pelvic ascites. T9 and L1 vertebral body hemangiomas. No suspicious osteolytic or osteoblastic lesions. Bilateral hip osteoarthritis IMPRESSION: Distal small bowel obstruction Mild abdominal and pelvic ascites Internal biliary stent 9.5 mm left hepatic cyst 8 and 12 mm left renal cysts 3 mm lower pole right renal calculus One or more pinpoint nonobstructing left renal calculi Diverticulosis of the colon Reviewed, dictated and finalized at [facility]. Reviewed, dictated and finalized at [facility].
--- NOTE | ~2019-10-15 | XR_ITS ---
XR abdomen NG/feed tube insert DATE: 10/15/2019 18:05 INDICATION: Small bowel obstruction. NG tube placement TECHNIQUE: Portable upright AP view COMPARISON: 10/15/2019 CT abdomen pelvis FINDINGS: There is a nasogastric tube in the gastric fundus, the proximal port situated 12 cm distal to the diaphragmatic hiatus. Internal biliary stent is noted. Surgical clips, right upper quadrant, consistent with cholecystectom y. IMPRESSION: NG tube in gastric fundus Reviewed, dictated and finalized at [facility]. Reviewed, dictated and finalized at [facility]. IMPRESSION: NG tube in gastric fundus
--- NOTE | ~2019-10-15 | XR_ITS ---
EXAMINATION: XR abdomen obstructive series DATE: 10/16/2019 06:13 INDICATION: Small bowel obstruction. TECHNIQUE: Upright and supine views of the abdomen were obtained. COMPARISON: CT abdomen and pelvis 10/15/2019 FINDINGS: There are multiple dilated loops of small bowel. The colon is decompressed. There is a smal l volume of stool in the colon. No free intraperitoneal gas. There is an internal biliary stent in ex pected position. Surgical clips in the right upper quadrant are likely from cholecystectomy. The naso gastric tube tip is in the stomach. IMPRESSION: 1. Persistently dilated small bowel, consistent with small bowel obstruction. Reviewed, dictated and finalized at location [facility].
[2019-10-15 13:43] VITALS: BP 130/63; PULSE 83; RESP 18; TEMP 36.7; O2SAT 100
--- NOTE | 2019-10-15 14:13 | ED.ABDPAIN ---
HPI - Abdominal Pain General Chief Complaint: Abdominal Pain Stated Complaint: SBO? Time Seen by Provider: 10/15/19 13:53 Source: patient and family Limitations: no limitations History of Present Illness HPI narrative: 63 years old white female presents with diffuse abdominal pain and dry heaves. Patient was discharged from our hospital yesterday with a diagnosis of small bowel obstruction. Patient was discharged on Reglan which cannot keep it down. Patient denies any fever, chills, chest pain or shortness of breath. Related Data Home Medications Medication Instructions Recorded Confirmed gabapentin 300 mg PO TID 10/11/19 10/11/19 Allergies Allergy/AdvReac Type Severity Reaction Status Date / Time No Known Allergies Allergy Unknown Verified 10/15/19 14:08 Review of Systems Review of Systems: Narrative: CONSTITUTIONAL: Denies fever, chills, or sweats. EYES: Denies visual changes, redness, or discharge. ENT: Denies rhinorrhea, congestion, sore throat, or otalgia. CARDIOVASCULAR: Denies chest pain, palpitations, or edema. RESPIRATORY: Denies cough or dyspnea. GASTROINTESTINAL: Abdominal bloating and distention GENITOURINARY: Denies dysuria or hematuria. SKIN: Denies rash or itching. MUSCULOSKELETAL: Denies back pain, joint pain, or myalgia. NEUROLOGIC: Denies headache, numbness, or weakness. PSYCHIATRIC: Denies anxiety or depression. [facility] Past Medical History Medical History Biliary stenosis (03/01/12) Surgical History Surgical History History of appendectomy History of cholecystectomy History of hysterectomy for benign disease Social History Social History Smoking status: Never smoker Alcohol intake: never Substance use: never Spiritual care concerns: No Exam Narrative: Exam Narrative: General appearance: Well-developed, well-nourished Skin: Normal color Head: Normocephalic, nontraumatic Eyes: Clear conjunctiva ENT: Oropharynx normal, ears normal, nose normal Neck: Supple, nontender Chest and respiratory: Airway patent, no respiratory distress, no accessory muscle use Heart: Regular rate/rhythm Abdomen: Soft, diffuse abdominal tenderness, distention Vascular: Normal peripheral pulses, normal capillary refill. Musculoskeletal: Normal range of motion, nontender back Neurologic: Alert and oriented ?3, [employer] is normal as tested, no gross motor deficit Course Course Emergency Course: Stable Vital Signs Vital signs: Vital Signs Temperature 36.7 C 10/15/19 13:43 Pulse Rate 83 10/15/19 13:43 Respiratory Rate 18 10/15/19 13:43 Blood Pressure 130/63 10/15/19 13:43 Pulse Oximetry 100 10/15/19 13:43 Temperature 36.7 C 10/15/19 13:43 Pulse Rate 59 L 10/15/19 16:36 Respiratory Rate 19 10/15/19 16:36 Blood Pressure 151/86 H 10/15/19 16:36 Pulse Oximetry 96 10/15/19 16:36 MDM - Abdominal Pain MDM Narrative Medical decision making narrative: Small bowel obstruction is my concern. Patient had history of multiple abdominal surgery including cholecystectomy, appendectomy, abdominal hernia repair, oophorectomy and vaginal hysterectomy Labs, CT abdomen and pelvis, IV fluid, IV Zofran and morphine ordered. Further plan to follow. CT scan abdomen and pelvis with IV contrast showed distal small bowel obstruction. The plan to admit patient to [facility] /Dr. Wayne small, NG tube, IV fluids. Differential Diagnosis Differential diagnosis: Likely abdominal pain, pancreatitis and small bowel obstruction Lab Data Result diagrams: 10/15/19 14:32
[2019-10-15] MEDS: SODIUM CHLORIDE 0.9% IV 1,000 ML 999 ML IV CONT (14:34)
[2019-10-15] MEDS: ONDANSETRON INJ 4 MG/2 ML VIAL IV PUSH (14:34)
[2019-10-15] MEDS: MORPHINE SULFATE 4 MG/ML INJ IV PUSH (14:35)
[2019-10-15 14:38] LABS: Basophils Percent Auto 0.2 % (0.2-1.2); Eosinophils Percent Auto 0.2 % (0-4.4); Hematocrit 39.1 % (37.0-47.0); Hemoglobin 13.6 g/dL (12.0-15.0); Immature Granulocyte Absolute 0.03 K/mm3 (0.00-0.031); Immature Granulocyte Percent A 0.4 % (0-0.5); Lymphocytes Absolute Auto 0.85 K/mm3 (0.9-3.2); Mean Corpuscular HGB Conc 34.8 g/dl (32-36); Mean Corpuscular Hemoglobin 31.3 pg (26-34); Mean Corpuscular Volume 89.9 fl (80-100); Monocytes Absolute Auto 0.7 K/mm3 (0.1-0.6); Monocytes Percent Auto 8.1 % (2.6-8.5); Neutrophils Absolute Auto 6.9 K/mm3 (1.3-6.7); Neutrophils Percent Auto 81.1 % (45.5-73.1); Platelet Count Result 256 k/mm3 (150-375); Red Blood Count 4.35 M/mm3 (4.2-5.4); Red Cell Distribution Width 11.2 % (11.5-14.5); White Blood Count 8.5 K/mm3 (4.5-10.0)
--- NOTE | 2019-10-15 14:41 | PC.NURSE ---
PT UNABLE TO GIVE URINE SAMPLE AT THIS TIME.
[2019-10-15 14:51] LABS: Alanine Aminotransferase 33 U/L (4-35); Albumin Level 4.2 g/dL (3.5-5.1); Alkaline Phosphatase 79 U/L (38-126); Anion Gap 14 mmol/L (8-16); Aspartate Amino Transferase 25 U/L (14-36); Bilirubin,Total 1.3 mg/dL (0.2-1.3); Blood Urea Nitrogen 13 mg/dL (7-17); Carbon Dioxide 23 mmol/L (22-30); Chloride 98 mmol/L (98-107); Estimated CRCL calculation 69 ml/min; Estimated Glomerular Filt Rate > 60; Glucose 83 mg/dL (65-105); Lipase 173 U/L (23-300); Potassium 3.5 mmol/L (3.4-5.0); Sodium 135 mmol/L (137-145)
[2019-10-15 16:36] VITALS: BP 151/86; PULSE 59; RESP 19; O2SAT 96
--- NOTE | 2019-10-15 18:29 | PC.NURSE ---
called to give to report was told by Consuelo that RN will call me back.
--- NOTE | 2019-10-15 18:48 | PC.NURSE ---
This patient, Stacy Bush, was admitted to 3 [facility] Surg Room 316-01. Patient/family oriented to hospital policies and general routines including ID bracelet, bed and alarms, visiting hours, pain management, procedures, bathroom and other care routines, personal items, smoking policy, room service/diet, and visiting hours. Valuables list has been completed. Information on how to activate the Rapid Response Team has been discussed. Patient/Family are encouraged to report perceived risks to care and to ask questions if they do not understand what they are told or what they should do.
[2019-10-15 19:35] VITALS: BP 134/63; PULSE 72; RESP 16; TEMP 37.1; O2SAT 95; BMI 21.7
[2019-10-15] MEDS: SODIUM CHLORIDE 0.9% IV 1,000 ML 100 ML IV CONT (20:36)
[2019-10-15 22:00] VITALS: BP 138/65; PULSE 73; RESP 16; TEMP 37.1; O2SAT 98
[2019-10-16] VITALS (12 sets, daily range): BP systolic 117–145; BP diastolic 58–71; PULSE 62–81; RESP 14–20; TEMP 36.4–37.1; O2SAT 95–100
[2019-10-16] MEDS: SODIUM CHLORIDE 0.9% IV 1,000 ML 100 ML IV CONT (05:48)
[2019-10-16 06:54] LABS: Basophils Percent Auto 0.2 % (0.2-1.2); Eosinophils Absolute Auto 0.1 K/mm3 (0-0.3); Eosinophils Percent Auto 1.4 % (0-4.4); Hematocrit 33.3 % (37.0-47.0); Hemoglobin 11.5 g/dL (12.0-15.0); Immature Granulocyte Absolute 0.01 K/mm3 (0.00-0.031); Immature Granulocyte Percent A 0.2 % (0-0.5); Lymphocytes Absolute Auto 0.95 K/mm3 (0.9-3.2); Lymphocytes Percent Auto 16.7 % (18.3-44.2); Mean Corpuscular HGB Conc 34.5 g/dl (32-36); Mean Corpuscular Volume 89.8 fl (80-100); Mean Platelet Volume 10.1 fl (7.4-10.4); Monocytes Absolute Auto 0.7 K/mm3 (0.1-0.6); Monocytes Percent Auto 11.8 % (2.6-8.5); Neutrophils Percent Auto 69.7 % (45.5-73.1); Platelet Count Result 192 k/mm3 (150-375); Red Blood Count 3.71 M/mm3 (4.2-5.4); Red Cell Distribution Width 11.1 % (11.5-14.5); White Blood Count 5.7 K/mm3 (4.5-10.0)
[2019-10-16 07:10] LABS: Anion Gap 12 mmol/L (8-16); Blood Urea Nitrogen 13 mg/dL (7-17); Calcium 7.9 mg/dL (8.4-10.2); Carbon Dioxide 19 mmol/L (22-30); Chloride 103 mmol/L (98-107); Estimated CRCL calculation 69 ml/min; Estimated Glomerular Filt Rate > 60; Glucose 61 mg/dL (65-105); Magnesium 1.8 mg/dL (1.6-2.3); Potassium 3.6 mmol/L (3.4-5.0); Sodium 134 mmol/L (137-145)
--- NOTE | 2019-10-16 08:32 | WPDHPUPDATE1 ---
History and Physical Update Update Date/Time: 10/16/19 08:32 History and Physical has been reviewed, including an updated exam of the patient. There are changes in the patient's condition. Patient returned to the hospital with similar symptoms as last admission with floating and signs of small-bowel obstruction on CT scan last evening in the ED. Risks, benefits, and alternatives have been discussed and questions answered. Patient agrees to proceed with procedure.
--- NOTE | 2019-10-16 10:33 | WPDANESEPPF ---
Anes - Initial Pre Proc Eval Procedure: Operation Date: 10/16/19 12:30 Proposed Procedures p OPERATIVE LAPAROSCOPY,LYSIS OF ADHESIONS - Xavier Black MD s POSSIBLE LAPAROTOMY,POSSIBLE SMALL BOWEL RESECTION - Xavier Black MD Date/Time: 10/16/19 10:33 Surgeon: Xavier Black MD Pre Op Diagnosis: Small bowel obstruction Patient Data Age: 63 Gender: F Height: 5 ft 7 in Weight: 63 kg Last Vital Signs Temp 36.9 C 10/16/19 06:00 Pulse 81 10/16/19 06:00 Resp 16 10/16/19 06:00 BP 140/71 10/16/19 06:00 Pulse Ox 97 10/16/19 06:00 Allergies Allergy/AdvReac Type Severity Reaction Status Date / Time No Known Allergies Allergy Unknown Verified 10/15/19 14:08 Home Medications Medication Instructions Recorded Confirmed Type gabapentin 300 mg PO TID 10/11/19 10/15/19 History metoclopramide HCl [Reglan] 10 mg PO Q6H PRN #5 tablet 10/14/19 10/15/19 Rx Laboratory Tests 10/15/19 10/15/19 10/16/19 14:32 14:32 06:26 WBC 8.5 K/mm3 K/mm3 5.7 K/mm3 K/mm3 (4.5-10.0) (4.5-10.0) RBC 4.35 M/mm3 M/mm3 3.71 M/mm3 L M/mm3 (4.2-5.4) (4.2-5.4) Hgb 13.6 g/dL g/dL 11.5 g/dL L g/dL (12.0-15.0) (12.0-15.0) Hct 39.1 % % 33.3 % L % (37.0-47.0) (37.0-47.0) MCV 89.9 fl fl 89.8 fl fl (80-100) (80-100) MCH 31.3 pg pg 31.0 pg pg (26-34) (26-34) MCHC 34.8 g/dl g/dl 34.5 g/dl g/dl (32-36) (32-36) RDW 11.2 % L % 11.1 % L % (11.5-14.5) (11.5-14.5) Plt Count 256 k/mm3 k/mm3 192 k/mm3 k/mm3 (150-375) (150-375) MPV 10.0 fl fl 10.1 fl fl (7.4-10.4) (7.4-10.4) Immature Gran % (Auto) 0.4 % % 0.2 % % (0-0.5) (0-0.5) Neut % (Auto) 81.1 % H % 69.7 % % (45.5-73.1) (45.5-73.1) Lymph % (Auto) 10.0 % L % 16.7 % L % (18.3-44.2) (18.3-44.2) Dale % (Auto) 8.1 % % 11.8 % H % (2.6-8.5) (2.6-8.5) Eos % (Auto) 0.2 % % 1.4 % % (0-4.4) (0-4.4) Baso % (Auto) 0.2 % % 0.2 % % (0.2-1.2) (0.2-1.2) Lymph # (Auto) 0.85 K/mm3 L K/mm3 0.95 K/mm3 K/mm3 (0.9-3.2) (0.9-3.2) Dale # (Auto) 0.7 K/mm3 H K/mm3 0.7 K/mm3 H K/mm3 (0.1-0.6) (0.1-0.6) Eos # (Auto) 0.0 K/mm3 K/mm3 0.1 K/mm3 K/mm3 (0-0.3) (0-0.3) Baso # (Auto) 0.0 K/mm3 K/mm3 0.0 K/mm3 K/mm3 (0.0-0.1) (0.0-0.1) Abs Immat Gran (auto) 0.03 K/mm3 K/mm3 0.01 K/mm3 K/mm3 (0.00-0.031) (0.00-0.031) Absolute Neuts (auto) 6.9 K/mm3 H K/mm3 4.0 K/mm3 K/mm3 (1.3-6.7) (1.3-6.7) Absolute Nucleated RBC 0.0 K/mm3 K/mm3 0.0 K/mm3 K/mm3 (0.0-0.012) (0.0-0.012) Nucleated RBC % 0.0 % % 0.0 % % (0.0-0.2) (0.0-0.2) Sodium 135 mmol/L L mmol/L (137-145) Potassium 3.5 mmol/L mmol/L (3.4-5.0) Chloride 98 mmol/L mmol/L (98-107) Carbon Dioxide 23 mmol/L mmol/L (22-30) Anion Gap 14 mmol/L mmol/L (8-16) BUN 13 mg/dL D mg/dL (7-17) Creatinine 0.70 mg/dL mg/dL (0.7-1.0) Estim Creat Clear Calc 69 ml/min ml/min Estimated GFR > 60 (59 - ) Glucose 83 mg/dL mg/dL (65-105) Calcium 9.0 mg/dL mg/dL (8.4-10.2) Magnesium Total Bilirubin 1.3 mg/dL mg/dL (0.2-1.3) AST 25 U/L U/L (14-36) ALT 33 U/L U/L (4-35) Alkaline Phosphatase 79 U/L U/L (38-126) Total Protein 7.0 g/dL g/dL (6.3-8.2) Albumin 4.2 g/dL g/dL (3.5-5.1) Lipase 173 U/L U/L (23-300) 10/16/19 06:26 WBC RBC Hgb Hct MCV MCH MCHC RDW Plt Count MPV Immature Gran % (Auto) Neut % (Auto) Lymph % (Auto) Dale % (Auto) Eos % (Auto) Baso % (Auto) Lymph # (Auto) Dale # (Auto) Eos # (Auto) Baso # (Auto) Abs Immat Gran (auto) Absolute Neuts (auto)
--- NOTE | 2019-10-16 10:33 | PC.NURSE ---
To OR per bed, IV saline locked. Report given to Lesvia and Chey[place].
[2019-10-16] MEDS: SCOPOLAMINE 1.5 MG PATCH TRANSDERM (10:51)
[2019-10-16] MEDS: LACTATED RINGERS 1,000 ML 30 ML IV CONT ×2 (10:57→12:54)
[2019-10-16] MEDS: BUPIVACAINE/EPINEPHRINE 0.5% 30 ML VIAL 20 ML INFILTRATE (12:08)
--- NOTE | 2019-10-16 13:21 | PM.PROC ---
Procedure Note - Detailed Date of procedure: 10/16/19 Pre-op diagnosis: Small bowel obstruction Post-op diagnosis: same Procedure performed: Operative laparoscopy with lysis of adhesions and release of small-bowel obstruction Description of procedure: Patient was checked and her hospital room and her abdomen marked prior to coming to surgery. Patient was placed supine on the bed and after abduction of adequate general tracheal anesthesia she was positioned in the bed such that she was immobilized to allow fairly steep Trendelenburg position. This was done with adequate padding and careful attention to avoiding pressure at all sites. Following this a Long catheter was placed. Following this the entire abdomen was prepped and draped in the usual sterile fashion. I started by using a standard Veress needle technique to enter the abdomen. In the left upper quadrant 2 fingerbreadths below the costal margin I made a small incision after instilling local anesthetic using 0.5% Marcaine with epinephrine. Two towel clips were placed on the incision and then using the Veress needle with a syringe with saline in it, I carefully advanced the needle through the various layers of the abdominal wall and when pressure was released the water drop test was used and confirmed that we were within the peritoneal cavity. CO2 gas was connected to the Veress needle and we insufflated the abdomen 14 mmHg pressure CO2 gas. Following this the needle was removed the 0 degree mm laparoscoped was placed in a 5 mm trocar and this was carefully advanced under direct vision into the pneumoperitoneum. Once we were inside the abdomen and could see a free space I carefully removed the center of the trocar and placed the scope back in and we attached the gas and turned up the flow to 40 L per minute. We then carefully made an inspection of the abdomen. I decided to place one 5 mm trocar just lateral to the umbilicus. The other one in the left lower quadrant. These were brought into the abdomen under direct vision. There were no adhesions underneath the circular mesh beneath the patient's umbilicus. There were dilated loops of small bowel in the mid and left upper quadrant of the abdomen. The cecum appeared to be decompressed as did some of the distal ileum. Therefore, I started at the cecum where there were significant adhesions of the cecum to the sidewall, probably secondary to her appendectomy and ovarian/tubal removal. We started at the ileocecal valve and began following the small bowel back. This went down to the pelvis but we could not pull much of it up as it seemed teathered. Therefore, I rotated the patient more to the right and then began pulling dilated loops of small bowel up out of the pelvis. As I was doing this we saw one spot where there was a very thick adhesive band and it appeared that another loop of bowel was going behind this. I was able to grasp the band and we lysed this band with endoscissors wiht cautery and this freed up the bowel. I was then able to move the freed up small bowel and we ran the bowel from that point all the way to the ligament Treitz, and then all the way back to the ileocecal valve. In the same area of scarring which hald caused the thick band I saw another area that was sort of looped between the edge of the pne side of the bowel and some mesentery so I also lysed this so that it could not become a future obstruction. I did not excise anything. At this point it appeared the small bowel was free and there were no other specific adhesions noted other than those to the sidewall of the pelvis in the right lower quadrant where the cecum was covering this nicely and they did not appear that there was going to be any signs of or chances of bowel obstruction. We looked back up at the upper abdomen by placing the patient flat and I could not pull any omentum over the small bowel as this seemed to be fairly short and tethered just below the level of the tr
--- NOTE | 2019-10-16 13:29 | SUR.PHASEI ---
1320 - dr. espinal stated no need for verification of NG tube
--- NOTE | 2019-10-16 15:47 | PC.NURSE ---
Returned from OR per bed on 10/16/19 at 1400. Report received from J[place]ICA Smith.
[2019-10-16] MEDS: LACTATED RINGERS 1,000 ML 100 ML IV CONT (17:41)
[2019-10-16 17:55] LABS: Glucose Point of Care 87 (65-105)
[2019-10-16] MEDS: ONDANSETRON INJ 4 MG/2 ML VIAL IV PUSH (20:48)
[2019-10-17] VITALS (7 sets, daily range): BP systolic 122–137; BP diastolic 61–71; PULSE 70–84; RESP 16–20; TEMP 36.8–37.3; O2SAT 94–99
[2019-10-17] MEDS: MORPHINE SULFATE 2 MG/ML INJ IV PUSH ×2 (02:27→09:03)
[2019-10-17] MEDS: diphenhydrAMINE HCl INJ 50 MG/ML VIAL 25 MG IV PUSH (02:28)
[2019-10-17] MEDS: ONDANSETRON INJ 4 MG/2 ML VIAL IV PUSH (02:28)
[2019-10-17] MEDS: DEXTROSE 5%/0.9% SOD CHL 1,000 ML 100 ML IV CONT ×2 (04:13→10:34)
[2019-10-17 06:40] LABS: Hematocrit 32.6 % (37.0-47.0); Hemoglobin 11.1 g/dL (12.0-15.0); Mean Corpuscular Hemoglobin 30.6 pg (26-34); Mean Corpuscular Volume 89.8 fl (80-100); Mean Platelet Volume 10.2 fl (7.4-10.4); Platelet Count Result 211 k/mm3 (150-375); Red Blood Count 3.63 M/mm3 (4.2-5.4); Red Cell Distribution Width 11.3 % (11.5-14.5); White Blood Count 5.9 K/mm3 (4.5-10.0)
[2019-10-17 06:52] LABS: Alanine Aminotransferase 19 U/L (4-35); Albumin Level 2.7 g/dL (3.5-5.1); Alkaline Phosphatase 46 U/L (38-126); Anion Gap 9 mmol/L (8-16); Aspartate Amino Transferase 15 U/L (14-36); Bilirubin,Total 0.5 mg/dL (0.2-1.3); Blood Urea Nitrogen 8 mg/dL (7-17); Calcium 7.7 mg/dL (8.4-10.2); Carbon Dioxide 21 mmol/L (22-30); Chloride 103 mmol/L (98-107); Estimated CRCL calculation 69 ml/min; Estimated Glomerular Filt Rate > 60; Glucose 96 mg/dL (65-105); Potassium 3.7 mmol/L (3.4-5.0); Sodium 133 mmol/L (137-145)
--- NOTE | 2019-10-17 07:42 | WPDANESPN ---
Anes - Prog Note Post-Op Date/Time: 10/17/19 07:42 Cardiovascular status: normal Respiratory status: normal Airway patency: baseline Mental status: baseline Post-Op hydration status: normal Vital Signs: Last Vital Signs Temp 37.1 C 10/17/19 06:00 Pulse 79 10/17/19 06:00 Resp 20 10/17/19 06:00 BP 123/70 10/17/19 06:00 Pulse Ox 98 10/17/19 06:00 I/O: Intake & Output 10/16/19 10/16/19 10/17/19 15:59 23:59 07:59 Intake Total 150 0 1000 Output Total 1550 200 Balance 150 -1550 800 Laboratory Tests 10/17/19 06:04 10/17/19 06:04 10/16/19 10/16/19 10/17/19 11:24 17:42 06:04 WBC 5.9 RBC 3.63 L Hgb 11.1 L Hct 32.6 L MCV 89.8 MCH 30.6 MCHC 34.0 RDW 11.3 L Plt Count 211 MPV 10.2 Sodium Potassium Chloride Carbon Dioxide Anion Gap BUN Creatinine Estim Creat Clear Calc Estimated GFR Glucose POC Capillary Glucose 87 Calcium Total Bilirubin AST ALT Alkaline Phosphatase Total Protein Albumin Blood Type B Positive Antibody Screen Negative 10/17/19 06:04 WBC RBC Hgb Hct MCV MCH MCHC RDW Plt Count MPV Sodium 133 L Potassium 3.7 Chloride 103 Carbon Dioxide 21 L Anion Gap 9 BUN 8 D Creatinine 0.70 Estim Creat Clear Calc 69 Estimated GFR > 60 Glucose 96 POC Capillary Glucose Calcium 7.7 L Total Bilirubin 0.5 AST 15 ALT 19 Alkaline Phosphatase 46 Total Protein 5.0 L Albumin 2.7 L Blood Type Antibody Screen Post-procedural complaints: none Patient Feedback: Patient satisfied with anesthetic care.
[2019-10-17] MEDS: ENOXAPARIN 40 MG/0.4 ML SYRINGE SUB-Q (09:03)
[2019-10-17] MEDS: LACTATED RINGERS 1,000 ML 100 ML IV CONT (09:03)
--- NOTE | 2019-10-17 09:28 | PM.PNGS ---
Progress Note: A&P Assessment and Plan (1) Biliary stenosis: Onset Date: 03/01/12 Code(s): K83.1 - Obstruction of bile duct Status: Acute (2) Partial small bowel obstruction: Onset Date: ~09/2019 Code(s): K56.600 - Partial intestinal obstruction, unspecified as to cause Status: Acute Assessment and Plan: this was the main reason for admission. Because she was admitted prior to this for the same thing but had a small-bowel follow-through that at 5-6 hours got dissect through the small-bowel she went home but did not improve. Therefore this time when she came back we went ahead with surgery. A dense fibrous band was found leading to a twist in the bowel with some element of obstruction. This was released laparoscopically. Patient now period to have an ileus. Will continue NG suction 2 hours out of every 4 and await resolution of the ileus. I discussed explained to the patient that this is usually manifested by noticing flatus and along with that subsequently a bowel movement. She will try to walk the halls do her incentive spirometry and we will begin giving her gabapentin at the time that we clamped the NG tube to see if that will take care of her headache. (3) Headache: Onset Date: ~10/17/19 Code(s): R51 - Headache Status: Acute Assessment and Plan: may be a or throw all symptom from not getting gabapentin which she is used to taking. Additional Plan Await resolution of ileus Continue NG suction but will do it 2 hours out of every 4 to low intermittent suction Await return of bowel function Continue D5 normal saline for IV fluids since she has had some low blood sugars. Subjective Subjective Date/Time Seen: 10/17/19 09:28 Post Op day: 1 ( Still feels nauseated and has a headache) Patient reports: nausea Interval history: patient had a 1st overnight from surgery without incident. Still had 700 cc out her NG. States that she has a fairly bad headache and suspects that this is because of not taking her gabapentin as she usually does. ( will order this with the NG to be clamped for 2 hours after giving it. ) Review of Systems Constitutional: Constitutional: Reports no additional constitutional complaints ENT: Reports other (Mucous Membranes moist.) Cardiovascular: Cardiovascular: Denies dyspnea Respiratory: Respiratory: Denies pain on inspiration and Denies dyspnea Gastrointestinal: Gastrointestinal: Reports nausea Musculoskeletal: Musculoskeletal: Reports other (No calf swelling or edema) Integumentary/Breasts: Skin/Breast: Reports system reviewed and no additional complaints, except as docu Exam Const: General: cooperative, no acute distress, alert and awake Orientation/consciousness: patient oriented x3 HENMT: Mouth: Yes moist mucous membranes Neck: Neck: normal visual inspection Chest: Chest palpation & inspection: normal inspection of the chest Resp: Effort & Inspection: normal respiratory effort Auscultation: clear to auscultation bilaterally Cardio: Jugular venous distension: no JVD Rate: regular rate Rhythm: regular rhythm GI: Inspection: scaphoid GI Palp: Yes Soft to palpation and No Hernia present Auscultation: absent bowel sounds Rectal Exam: deferred Other: Incisions clean and dry with surgical glue in place. Neuro: General: patient oriented x3 and moves all extremities Speech: normal speech Extrem: General: normal exam except as noted Psych: Mental Status: mental status grossly normal Speech and movement: Normal speech and movement present Affect: normal affect Thought content: Yes Normal thought content present Objective Data Vital Signs Vital Signs: Vital Signs - 24 hr 10/16/19 10:33 10/16/19 12:54 10/16/19 13:05 Temperature 36.7 C 37.0 C Pulse Rate 71 74 67 Respiratory Rate 20 16 15 Blood Pressure 145/64 H 117/60 126/65 Pulse Oximetry 98 100 100 10/16/19 13:20 10/16/19 13:35 10/16/19 13:5
[2019-10-17] MEDS: GABAPENTIN 300 MG CAPSULE PO ×2 (10:40→16:56)
[2019-10-18 02:00] VITALS: BP 139/68; PULSE 72; RESP 18; TEMP 36.9; O2SAT 97
[2019-10-18] MEDS: DEXTROSE 5%/0.9% SOD CHL 1,000 ML 100 ML IV CONT ×2 (03:35→18:24)
[2019-10-18 06:00] VITALS: BP 131/61; PULSE 65; RESP 16; TEMP 36.6; O2SAT 97
[2019-10-18 06:28] LABS: Anion Gap 5 mmol/L (8-16); Blood Urea Nitrogen 5 mg/dL (7-17); Calcium 7.8 mg/dL (8.4-10.2); Carbon Dioxide 29 mmol/L (22-30); Chloride 104 mmol/L (98-107); Estimated CRCL calculation 79 ml/min; Estimated Glomerular Filt Rate > 60; Glucose 109 mg/dL (65-105); Potassium 3.2 mmol/L (3.4-5.0); Sodium 138 mmol/L (137-145)
--- NOTE | 2019-10-18 07:38 | PM.PNGS ---
Progress Note: A&P Assessment and Plan (1) Partial small bowel obstruction: Onset Date: ~09/2019 Code(s): K56.600 - Partial intestinal obstruction, unspecified as to cause Status: Acute Assessment and Plan: + Flatus and hypoactive BS. Ileus may be resoving now. will clamp NG and allow patient have sips of clear liquids. If doing well this afternoon probably will pull NG out. (2) Hypokalemia: Code(s): E87.6 - Hypokalemia Status: Acute Assessment and Plan: Will give one IV rider now and then Po tonight if NG is out. Will give one IV rider now and then Po tonight if NG is out. Additional Plan Await resolution of ileus. Clamp NG and allow sips of clear liquids. If doing well this afternoon with minimal out the NG when connected for half an hour will remove NG. Await return of bowel function Continue D5 normal saline for IV fluids since she has had some low blood sugars. Subjective Subjective Date/Time Seen: 10/18/19 07:38 Post Op day: 2 Patient reports: no new complaints, feels better and flatus Interval history: No BM yet. patient does states she is passing flatus. Denies abdominal pain at all. Review of Systems Constitutional: Constitutional: Reports no additional constitutional complaints ENT: Reports other (Mucous Membranes moist.) Cardiovascular: Cardiovascular: Denies dyspnea Respiratory: Respiratory: Denies pain on inspiration and Denies dyspnea Gastrointestinal: Comments: Feels better than yesterday no abdominal pain today. No headache today. Musculoskeletal: Musculoskeletal: Reports other (No calf swelling or edema) Integumentary/Breasts: Skin/Breast: Reports system reviewed and no additional complaints, except as docu Exam Const: General: cooperative, no acute distress, alert and awake Orientation/consciousness: patient oriented x3 HENMT: Mouth: Yes moist mucous membranes Neck: Neck: normal visual inspection Chest: Chest palpation & inspection: normal inspection of the chest Resp: Effort & Inspection: normal respiratory effort Auscultation: clear to auscultation bilaterally Cardio: Jugular venous distension: no JVD Rate: regular rate Rhythm: regular rhythm GI: Inspection: scaphoid Auscultation: absent bowel sounds Rectal Exam: deferred Other: Incisions clean and dry with surgical glue in place. some bowel sounds to auscultation today possibly hypoactive compared to normal Neuro: General: patient oriented x3 and moves all extremities Speech: normal speech Extrem: General: normal exam except as noted Psych: Mental Status: mental status grossly normal Speech and movement: Normal speech and movement present Affect: normal affect Objective Data Vital Signs Vital Signs: Vital Signs - 24 hr 10/17/19 08:00 10/17/19 10:02 10/17/19 11:38 Temperature 37.2 C 37.3 C Pulse Rate 70 77 Respiratory Rate 18 16 Blood Pressure 137/61 128/62 Pulse Oximetry 94 96 97 10/17/19 15:38 10/17/19 22:00 10/18/19 02:00 Temperature 37.2 C 36.8 C 36.9 C Pulse Rate 80 84 72 Respiratory Rate 20 16 18 Blood Pressure 130/65 128/68 139/68 Pulse Oximetry 99 96 97 10/18/19 06:00 Temperature 36.6 C Pulse Rate 65 Respiratory Rate 16 Blood Pressure 131/61 Pulse Oximetry 97 Intake/Output Intake/Output: Intake & Output 10/15/19 10/16/19 10/17/19 10/18/19 23:59 23:59 23:59 23:59 Intake Total 1000 1250 2000 Output Total 500 1551 750 900 Balance 500 -301 1250 -900 Meds/Results Medications: Active Medications Generic Name Dose Route Start Last Admin Trade Name Freq PRN Reason Stop Dose Admin Hydrocodone Bitart/Acetaminophen 1 tab 10/17/19 09:34 [place] 5-325 Mg PO Q6H PRN Pain Rated 4-6 Benzocaine 1 lozenge 10/17/19 09:34 Chloraseptic Lozenge PO PRN PRN Sore Throat Bisacodyl 10 mg 10/17/19 09:34 Dulcolax Suppository RECTAL QAM PRN Constipation Dextrose 12.5 gm 10/16/19 17:55
[2019-10-18 08:00] VITALS: PULSE 65; RESP 16; O2SAT 97
[2019-10-18] MEDS: ENOXAPARIN 40 MG/0.4 ML SYRINGE SUB-Q (08:03)
[2019-10-18] MEDS: GABAPENTIN 300 MG CAPSULE PO ×3 (08:05→18:26)
[2019-10-18 14:00] VITALS: BP 122/54; PULSE 63; RESP 16; TEMP 37.2; O2SAT 99
[2019-10-18] MEDS: MAGNESIUM HYDROXIDE SUSP 30 ML UDC (15:55)
[2019-10-18] MEDS: BISACODYL 10 MG SUPPOSITORY RECTAL (15:55)
--- NOTE | 2019-10-18 18:46 | PC.NURSE ---
1200 pt tolerated clamping of n-g tube, pt states that she is passing flatus.
--- NOTE | 2019-10-18 18:47 | PC.NURSE ---
spoke with dr espinal and clapmed n-g lewis for 1/2 hr total amt drained was 50cc. will pull the n-g tube
[2019-10-18 21:42] VITALS: BP 110/45; PULSE 69; RESP 16; TEMP 36.6; O2SAT 100
[2019-10-19] MEDS: DEXTROSE 5%/0.9% SOD CHL 1,000 ML 100 ML IV CONT (03:32)
[2019-10-19 06:00] VITALS: BP 101/53; PULSE 56; RESP 16; TEMP 36.7; O2SAT 99
[2019-10-19 06:37] LABS: Basophils Percent Auto 0.4 % (0.2-1.2); Eosinophils Absolute Auto 0.2 K/mm3 (0-0.3); Eosinophils Percent Auto 3.5 % (0-4.4); Hematocrit 31.7 % (37.0-47.0); Hemoglobin 10.8 g/dL (12.0-15.0); Immature Granulocyte Absolute 0.01 K/mm3 (0.00-0.031); Immature Granulocyte Percent A 0.2 % (0-0.5); Lymphocytes Absolute Auto 1.55 K/mm3 (0.9-3.2); Lymphocytes Percent Auto 28.8 % (18.3-44.2); Mean Corpuscular HGB Conc 34.1 g/dl (32-36); Mean Corpuscular Hemoglobin 31.2 pg (26-34); Mean Corpuscular Volume 91.6 fl (80-100); Monocytes Absolute Auto 0.6 K/mm3 (0.1-0.6); Monocytes Percent Auto 11.7 % (2.6-8.5); Neutrophils Percent Auto 55.4 % (45.5-73.1); Platelet Count Result 189 k/mm3 (150-375); Red Blood Count 3.46 M/mm3 (4.2-5.4); Red Cell Distribution Width 11.6 % (11.5-14.5); White Blood Count 5.4 K/mm3 (4.5-10.0)
[2019-10-19 06:46] LABS: Anion Gap 2 mmol/L (8-16); Blood Urea Nitrogen 3 mg/dL (7-17); Carbon Dioxide 31 mmol/L (22-30); Chloride 107 mmol/L (98-107); Estimated CRCL calculation 79 ml/min; Estimated Glomerular Filt Rate > 60; Glucose 117 mg/dL (65-105); Potassium 3.6 mmol/L (3.4-5.0); Sodium 140 mmol/L (137-145)
[2019-10-19] MEDS: SCOPOLAMINE 1.5 MG PATCH TRANSDERM (07:46)
[2019-10-19] MEDS: GABAPENTIN 300 MG CAPSULE PO ×2 (07:46→14:10)
[2019-10-19] MEDS: ENOXAPARIN 40 MG/0.4 ML SYRINGE SUB-Q (07:47)
--- NOTE | 2019-10-19 12:33 | PM.DS ---
DS: Admitting Diagnosis Admitting Diagnosis Admitting Diagnosis: Partial Small bowel obstruction Known biliary stenosis DS: Discharge Diagnosis Discharge Diagnosis (1) Partial small bowel obstruction: Onset Date: ~09/2019 Code(s): K56.600 - Partial intestinal obstruction, unspecified as to cause Status: Acute Assessment and Plan: Patient required laparoscopic lysis of adhesions but has recovered well from this after a short ileus. She is ready to discharge today at having tolerated a soft diet for lunch. (2) Biliary stenosis: Onset Date: 03/01/12 Code(s): K83.1 - Obstruction of bile duct Status: Acute Assessment and Plan: Patient has a follow-up visit with her GI doctor in [place]. A CT scan disc of her most recent CT head from this admission will be made so she continue with her to that appointment. Both this CT in the previous 1 last week show that the biliary stent was in good position and she had normal biliary functions on lab testing throughout this period time. (3) Hypokalemia: Onset Date: ~10/18/19 Code(s): E87.6 - Hypokalemia Status: Acute Assessment and Plan: Repeat potassium the morning of discharge was in normal range. She received 1 KCl rider on date listed above 10/18/2019. DS: Summary Hospital Course Reason for hospitalization: partial small-bowel obstruction with significant distal obstruction causing bloating abdominal pain and recurrent fashion. Hospital Course: Patient was admitted after return to the ER with recurrent abdominal bloating and pain with a CT scan showing or recurrent distal small-bowel obstruction by something in the pelvis. On the day of her return she was taken to the operating room after a thorough workup and had laparoscopic lysis of adhesions. There did not appear to be any structural problems with small bowel. These were lysed in 2 [address] and this hopefully will take care of the problem. She had an NG tube in for 2 days after surgery because of a continuing ileus but this seemed to resolve beginning overnight on 10/17 into 10/19/2019. She tolerated the liquids well in the morning after having her NG tube tube removed on the evening . It appeared she was ready to be discharged once she tolerated a full liquid diet on the breakfast of the day of discharge. We kept her for lunch in nature she tolerated some soft food. Otherwise she will go home and see me in the office in about 3 weeks. Status at Discharge Cognitive/behavioral status at discharge: Returned to baseline and/or normal Functional status at discharge: independent ambulation Overall status at discharge: patient is back to baseline Time Spent with Patient Time attestation: Total time spent providing and/or coordinating discharge services: Time spent: Less than 30 minutes Specific discharge activities: instructions given to patient Exam Const: General: cooperative, no acute distress, alert and awake Orientation/consciousness: patient oriented x3 HENMT: Mouth: Yes moist mucous membranes Neck: Neck: normal visual inspection Chest: Chest palpation & inspection: normal inspection of the chest Resp: Effort & Inspection: normal respiratory effort Auscultation: clear to auscultation bilaterally Cardio: Jugular venous distension: no JVD Rate: regular rate Rhythm: regular rhythm GI: Inspection: incision ( clean and dry with surgical glue in place) GI Palp: Yes Soft to palpation and No Hernia present Auscultation: normoactive bowel sounds Rectal Exam: deferred Neuro: General: patient oriented x3 and moves all extremities Speech: normal speech Extrem: General: normal exam except as noted Psych: Mental Status: mental status grossly normal Speech and movement: Normal speech and movement present Affect: normal affect Thought content: Yes Normal thought content present DS: Data Data Completed and Pending Labs on day of discharge
[2019-10-19 14:00] VITALS: BP 127/61; PULSE 88; RESP 18; TEMP 36.6; O2SAT 98
== END 2019-10-19 16:33 | disposition home or self-care (01) | DRG 335 ==
LOC: ANHED 18:07 → ANH3MEDSUR 18:21
PROVIDERS: Admitting Provider Surgery; Emergency Provider Emergency Medicine; PCP Family Medicine Adolescent Medicine; Visit Provider Surgery
PROC: 0DTJ4ZZ Resection of Appendix, Percutaneous Endoscopic Approach (ICD-10-PCS; CPT 44970; principal; 2019-10-16 12:30)
DX: K56.51 Intestinal adhesions [bands], with partial obstruction (principal); K83.1 Obstruction of bile duct; K91.81 Other intraoperative complications of digestive system; K56.7 Ileus, unspecified; E87.6 Hypokalemia; R51 Headache; G62.9 Polyneuropathy, unspecified; Z90.49 Acquired absence of other specified parts of digestive tract; Z90.710 Acquired absence of both cervix and uterus
CPT/HCPCS: 36415; 74019; 74177; 80048; 80053; 83690; 83735; 85025; 85027; 86850; 86900; 86901; 87070; 87075; 87205; 96361; 96374; 96375; 99285; A9270; J0131; J0330; J1100; J1170; J1200; J1650; J2250; J2270; J2370; J2405; J2704; J2710; J3010; J3480; J7030; J7042; J7120; Q9967

== ENCOUNTER → 2020-05-23 12:02 | Outpatient (CLI) | payer OTHER, SELFPAY ==
--- NOTE | ~2020-05-23 | XR_ITS ---
EXAMINATION: XR chest 2V 05/23/2020 12:27 INDICATION: Chest pain PROCEDURE: 2 view chest COMPARISON: No prior studies for comparison. FINDINGS: The lungs are clear. The cardiomediastinal silhouette is within normal limits. There are no pleural effusions. There is no pneumothorax suspected. IMPRESSION: 1: NO ACUTE CARDIOPULMONARY DISEASE. Reviewed, dictated and finalized at location A.
== END ==
PROVIDERS: PCP Family Medicine Adolescent Medicine; Visit Provider Physician Assistant
DX: R68.84 Jaw pain (principal); M54.9 Dorsalgia, unspecified
CPT/HCPCS: 71046

== ENCOUNTER → 2020-09-23 12:29 | Outpatient (CLI) | payer OTHER, SELFPAY ==
--- NOTE | ~2020-09-23 | MM_ITS ---
EXAMINATION: MM screening yessenia BI w bharat HISTORY: Screening mammogram TECHNIQUE: Craniocaudal and mediolateral oblique 3-D tomosynthesis images were obtained and synthetic 2-D images were generated. CAD analysis was submitted and interpreted. COMPARISON: 08/18/2019 bilateral diagnostic digital mammogram and complete bilateral breast ultrasound 06/15/2018, 05/15/2017 bilateral digital screening mammogram examinations BREAST PARENCHYMAL COMPOSITION: There are scattered areas of fibroglandular density. FINDINGS: There is no evidence of suspicious mass, calcification, or architectural distortion to sugg est malignancy in either breast. There has been no suspicious interval change. IMPRESSION: 1. No mammographic evidence of malignancy. 2. Recommend routine screening mammography in one year. BI-RADS Category 1: Negative Reviewed, dictated and finalized at location A.
== END ==
PROVIDERS: Visit Provider Nurse Practitioner Obstetrics & Gynecology
DX: Z12.31 Encounter for screening mammogram for malignant neoplasm of breast (principal)
CPT/HCPCS: 77063; 77067

== ENCOUNTER → 2022-03-09 13:09 | Outpatient (CLI) | payer MEDICARE, SELFPAY ==
--- NOTE | ~2022-03-09 | MM_ITS ---
EXAMINATION: MM screening yessenia BI w bharat HISTORY: Screening mammogram TECHNIQUE: Craniocaudal and mediolateral oblique 3-D tomosynthesis images were obtained and synthetic 2-D images were generated. CAD analysis was submitted and interpreted. COMPARISON: 09/23/2020 bilateral screening mammogram 08/08/2019 bilateral diagnostic mammography and bilateral complete breast ultrasound examination BREAST PARENCHYMAL COMPOSITION: There are scattered areas of fibroglandular density. FINDINGS: There is no evidence of suspicious mass, calcification, or architectural distortion to sugg est malignancy in either breast. There has been no suspicious interval change. IMPRESSION: 1. No mammographic evidence of malignancy. 2. Recommend routine screening mammography in one year. BI-RADS Category 1: Negative Reviewed, dictated and finalized at location A. CCO SCRAP SIFTER
--- NOTE | ~2022-03-09 | DEXA_ITS ---
Bone Density Report Name: SHANIKA RUST Age: 66 Sex: Female Ethnicity: White Date of : 1955 Indication: postmenopausal; screening for osteoporosis; height loss; hysterectomy; Referring Provider: Shailesh, Ayleen Littlejohn Study: Bone densitometry was performed. Exam Date: March 09, 2022 Accession number: [id number] Bone Density: Region BMD T-score Z-score Classification AP Spine (L1-L4) 1.123 0.7 2.5 Normal Femoral Neck (Left) 0.772 -0.7 0.9 Normal Total Hip (Left) 0.915 -0.2 1.1 Normal Femoral Neck (Right) 0.826 -0.2 1.4 Normal Total Hip (Right) 0.985 0.3 1.6 Normal Total Hip Mean 0.950 0.1 1.4 Normal World Health Organization criteria for BMD impression classify patients as: Normal (T-score at or above -1.0), Osteopenia (T-score between -1.0 and -2.5), or Osteoporosis (T-score at or below -2.5). 10-year Fracture Risk: FRAX not reported because: All T-scores for Spine Total, Hip Total, Femoral Neck at or above -1.0 Previous Exams: Region Exam Age BMD T-score BMD Change BMD Change Date g/cm2 vs Baseline vs Previous AP Spine(L1-L4) 03/09/2022 66 1.123 0.7 0.117* 0.045* 02/06/2016 60 1.079 0.3 0.072* -0.008 03/14/2010 54 1.087 0.4 0.081* 0.081* 02/16/2007 51 1.006 -0.4 Total Hip(Left) 03/09/2022 66 0.915 -0.2 -0.095 -0.028* 02/06/2016 60 0.943 0.0 -0.068 -0.102* 03/14/2010 54 1.045 0.8 0.034 0.130* 02/16/2007 51 0.915 -0.2 -0.096 -0.096 05/23/2003 47 1.011 0.6 Total Hip(Right) 03/09/2022 66 0.985 0.3 -0.077 -0.020 02/06/2016 60 1.004 0.5 -0.057 -0.067* 03/14/2010 54 1.071 1.1 0.010 0.101* 02/16/2007 51 0.970 0.2 -0.091 -0.091 05/23/2003 47 1.061 1.0 *Denotes significance at 95% confidence level, LSC for AP Spine = 0.022 g/cm2, LSC for Total Hip = 0.027 g/cm2 Clinical Information Provided by Patient: Has the following medical conditions: Hysterectomy Patient maximum height was 68 Menopause Age: 32 No regular weight bearing exercise Does not regularly consume dairy products Drinks caffeinated beverages Onset of menses at age 18 Number of children 3 Impression: The patient has normal bone mass. The BMD for the Total Hip(Left) decreased, changing by -0.028 since
== END ==
PROVIDERS: PCP Family Medicine Adolescent Medicine; Visit Provider Nurse Practitioner Obstetrics & Gynecology
DX: Z12.31 Encounter for screening mammogram for malignant neoplasm of breast (principal); M85.88 Other specified disorders of bone density and structure, other site
CPT/HCPCS: 77063; 77067; 77080

== ENCOUNTER 2022-03-31 11:33 | Outpatient (CLI) | payer MEDICARE, SELFPAY ==
--- NOTE | ~2022-03-31 | US_ITS ---
EXAMINATION: US venous doppler [facility] DATE: 03/31/2022 12:12 INDICATION: Left lower limb pain TECHNIQUE: Otto scale images without and with compression and Doppler images of the left lower extrem ity veins were obtained. COMPARISON: None FINDINGS: The left common femoral vein, profunda femoral vein, femoral vein, popliteal vein, peroneal trunk, posterior tibial veins, and greater saphenous vein are patent. A small Deluna's cyst is noted. IMPRESSION: 1. Patent left lower extremity veins. No evidence of deep venous thrombosis. Reviewed, dictated and finalized at location L. LOADER
--- NOTE | ~2022-03-31 | XR_ITS ---
EXAM: XR knee LT 2V DATE: 03/31/2022 12:24 HISTORY: M25.562 - TWINGE IN KNEE WHILE STANDING x1MO, CANT BEAR WT . COMPARISON: None available. FINDINGS: Normal mineralization. No fracture or dislocation. No lytic or blastic lesion. Mild medial joint space narrowing. Osteophytosis, moderate in the patellofemoral compartment and mild in the med ial compartment. No erosion or periosteal change. Trace knee joint fluid. Soft tissues within normal limits. IMPRESSION: No acute osseous finding in the left knee. Mild-moderate bicompartmental left knee osteoa rthritis. Reviewed, dictated and finalized at location K. ILIZATION TECH IMPRESSION: No acute osseous finding in the left knee. Mild-moderate bicompartm ental left knee osteoarthritis.
== END 2022-03-31 11:34 | disposition home or self-care (01) ==
LOC: ANHIMG 11:38
PROVIDERS: PCP Family Medicine Adolescent Medicine; Visit Provider Physician Assistant
DX: M79.605 Pain in left leg (principal); M17.12 Unilateral primary osteoarthritis, left knee
CPT/HCPCS: 73560; 93971

== ENCOUNTER 2022-04-17 06:50 | Outpatient (CLI) | payer MEDICARE, SELFPAY ==
--- NOTE | ~2022-04-17 | MR_ITS ---
EXAMINATION: MR knee LT wo con DATE: 04/17/2022 07:37 INDICATION: Left knee pain TECHNIQUE: Magnetic resonance imaging (MRI) of the left knee was performed without intravenous contra st. Sequences included coronal PD-weighted FSE, coronal PD-weighted FS FSE, sagittal T2-weighted FSE , sagittal PD-weighted FS FSE and axial PD weighted fat saturated FSE. COMPARISON: None. FINDINGS: Medial compartment: Complex tear of the medial meniscus which includes a longitudinal horizontal tear extending to the in tra-articular surface. There is also a radial tear plane extending through the inner two thirds of th e posterior horn more medially and across the peripheral third more laterally near the posterior root . Unclear whether these represent independent tears or a communicating parrot beak configuration tear . There is mild partial-thickness cartilage loss with smooth chondral surface along the anterior to c entral weightbearing medial femoral condyle and medial aspect of the medial tibial plateau. Lateral compartment: There is 3-4 mm lateral extrusion of the lateral meniscal body. Small radial tear versus focal frayin g along the inner most free edge of the body of the lateral meniscus. Articular cartilage is normal. Patellofemoral compartment: Deep chondral ulceration at the medial patellar facet with small focus of underlying edema-like signa l change. Less severe partial thickness chondral ulceration and fissuring at the apical ridge and sca ttered partial thickness chondral fissuring at the lateral facet. Chondral ulceration and deep fissur ing with small region of mild cortical irregularity and underlying minimal edema-like signal change a t the inferior aspect of the medial trochlea. Ligaments and tendons: Anterior and posterior cruciate ligaments are normal. The medial collateral ligament and fibular brianne ateral ligament complex are normal. Mild to moderate distal quadriceps and mild proximal patellar ten dinopathy without tear. Additional mild to moderate tendinopathy without tear of the semimembranosus tendon. The remaining medial and lateral hamstring tendons as well as the iliotibial band are normal. Incidentally noted is a normal variant accessory slip of the iliotibial band which inserts along the anterolateral margin of the lateral meniscus. Fluid: Small left knee joint effusion. No loose osteochondral bodies identified. There is soft tissue edema along the periphery of a large Deluna's cyst which measures 8.9 cm in length and up to 2.3 x 2.4 cm in maximal transaxial dimensions. Osseous/other: Spiculated low signal intensity sclerotic bone island at the posterior aspect of the medial femoral c ondyle. No fracture or pathologic marrow replacing process. IMPRESSION: 1. Complex medial meniscal tear. 2. Small radial tear versus focal fraying along the free edge of the lateral meniscus with anatomic v ariant accessory slip of the iliotibial band inserting at the periphery of the junction of the anteri or horn and body of the lateral meniscus. 3. Mild medial and patellofemoral osteoarthritis, the latter with regions of high-grade chondromalaci a. 4. Small left knee joint effusion and large Deluna's cyst with surrounding edema. 5. Tendinopathy, mild to moderate severity at the distal quadriceps and semimembranosus tendons and m ild at the proximal patellar tendon. Reviewed, dictated and finalized at location A. [employer] IMPRESSION: 1. Complex medial meniscal tear. 2. Small radial tear versus focal fraying along the free edge of the lateral me niscus with anatomic variant accessory slip of the iliotibial band inserting at the periphery of the junction of the anterior horn and body of the lateral men iscus. 3. Mild medial and patellofemoral osteoarthr
== END 2022-04-17 06:51 | disposition home or self-care (01) ==
PROVIDERS: PCP Family Medicine Adolescent Medicine; Visit Provider Nurse Practitioner
DX: S83.232A Complex tear of medial meniscus, current injury, left knee, initial encounter (principal); X58.XXXA Exposure to other specified factors, initial encounter; M17.12 Unilateral primary osteoarthritis, left knee; M25.462 Effusion, left knee; M71.22 Synovial cyst of popliteal space [Baker], left knee
CPT/HCPCS: 73721

== ENCOUNTER 2022-06-08 00:48 | Day surgery (SDC) | payer MEDICARE, SELFPAY ==
[2022-06-03 15:20] VITALS: BMI 30.8
--- NOTE | 2022-06-03 15:33 | PC.NURSE ---
Report to the Outpatient Waiting Room, entrance under the green pavilion located off [facility], at time ___0900____ on date _06/08/22 . Planned Procedure Time: __1100 . Time changes happen often and if your time is changed the preop area will call you the afternoon before. - You and your visitor will be asked to self-screen and do not enter if you have any COVID symptoms. - Only one visitor is requested with a max of two and NO children visitors are allowed at this time. - The patient visitor may be requested to leave or wait in car when not with patient due to distancing restrictions. - A mask is optional within the hospital at this time. Patients may have clear liquids (water, carbonated beverages, clear teas, apple juice) until 3 hours prior to surgery (0800 AM) with a maximum of 20 ounces. - No food from midnight until time of surgery - Infants may have breast milk until 4 hours before surgery, formula 6 hours prior to surgery. - Children will be allowed to drink immediately following surgery. If applicable, please bring a bottle or sippy cup to assist with drinking. Juice, water, soda, and popsicles are readily available. For infants on formula, please bring formula the day of surgery. Pacifiers are allowed. Take the following medications with a SIP of water the morning of surgery: GABAPENTIN DO NOT STOP ANY OF YOUR OTHER PRESCRIPTION MEDICATIONS PRIOR TO SURGERY ?EXCEPT THE FOLLOWING Medications to discontinue per physician N/A Date to take last dose Please no make-up, nail frisian, hairspray, perfume, deodorant, or body powder the day of surgery. No jewelry (including any body piercings) or valuables the day of surgery, leave them at home. Please take a shower or bath the night before, or the morning of, surgery with an antibacterial soap. Wear comfortable, loose fitting clothing. Children are encouraged to wear pajamas. - Jewelry must be removed prior to entering the operating room. Rings and piercings that are not removed may be cut off. - The hospital will not accept responsibility for valuables. - Please leave all valuables, including medications, at home the day of surgery. If you are going home after surgery, a licensed hi low truck driver must drive you home. - NO public transportation without another adult if you receive anesthesia. - We recommend that an adult stay with you for 24 hours following discharge. - We also recommend that you do not drive, make important decision, drink alcoholic beverages, or take any drugs that were not prescribed by your health care provider for at least 24 hours after your discharge time. For Pediatric surgeries, we recommend two adults accompany the child home. Follow any additional instructions given to you from your surgeon. If you or anyone in your household have experienced Covid symptoms in the past week, please notify your surgeon or the nurse liaison at the phone number below for possible testing. Telephone instructions given to _PATIENT_and asked if any additional questions and then verbalized understanding. Patient advised to call surgeon office or pre surgery nurse liaison [phone] if any additional questions.
[2022-06-08] VITALS (9 sets, daily range): BP systolic 86–152; BP diastolic 48–77; PULSE 60–90; RESP 10–18; TEMP 36.6–36.8; O2SAT 98–100
--- NOTE | 2022-06-08 08:39 | P.PNAN_ITS ---
Anes - Initial Pre Proc Eval Procedure: Operation Date: 06/08/22 11:00 Proposed Procedures p Left Knee Arthroscopy with Meniscectomy - Fred Jarrett MD Date/Time: 06/08/22 08:39 Surgeon: Fred Jarrett MD Pre Op Diagnosis: left knee meniscus tear Patient Data Age: 66 Gender: F Height: 1.65 m Weight: 84.09 kg Allergies Allergy/AdvReac Type Severity Reaction Status Date / Time erythromycin base Allergy Swelling Verified 06/08/22 09:48 clarithromycin AdvReac Severe Diarrhea Verified 06/08/22 09:48 Home Medications Medication Instructions Recorded Confirmed Type gabapentin 300 mg capsule 300 mg PO TID 10/11/19 06/03/22 History Patient hx anesthesia problems: none Family hx anesthesia problems: none Results Review: All pre-operative results and documents have been reviewed as part of the pre- operative evaluation. [facility] Past Medical History Medical History (Updated 06/02/22 @ 10:44 by Fred Jarrett MD) Hernia History of small bowel obstruction Neuropathy Partial small bowel obstruction (~09/2019) Rotator cuff sprain SBO (small bowel obstruction) (10/11/19) Small bowel obstruction (09/2019) Tear of medial meniscus of knee Thyroglobulin antibody positive Thyroiditis Torn ACL (anterior cruciate ligament) Surgical History Surgical History H/O bilateral oophorectomy (~1992) H/O foot surgery x4 History of appendectomy History of cholecystectomy (2005) History of hysterectomy for benign disease (~1988) History of laparoscopy (09/2019) 10/18 Adhesiolysis History of rotator cuff surgery x2 Family History Family History Sibling Hypertension Depression Mother Hypertension Father Urinary (tract) obstruction Mother No problems noted. Grandparent Cancer Other Diabetes mellitus Daughter Hypertension Other Blood disorder Heart disease Obesity Social History Social History Smoking status: Never smoker Second hand tobacco smoke exposure: No Alcohol intake: never Substance use: never Substance use type: does not use Living arrangements: alone Occupation/Education: other Additional occupation/education comments: Homemaker Gender identity (if verbalized by the patient): Female Spiritual care concerns: No Anes - Eval Final PreProcedure Day of Procedure 06/08/22 08:39 Patient weight: obese Heart: regular rate and rhythm Lungs: clear to auscultation Airway: Mallampati scale class II Neurological: alert and oriented Last oral intake: >/= 8 hours ASA classification: II Emergent: no Anesthetic plan: proceed Anesthesia type and monitoring: general LMA and standard monitoring Results Review: All pre-operative results and documents have been reviewed as part of the pre-operative evaluation. Informed Consent: The patient's anesthetic plan and its attendant risks and benefits were discussed with the patient/family/POA. Questions were solicited and answers provided to the satisfaction of the patient/family/POA.
--- NOTE | 2022-06-08 09:06 | WPDHPUPDATE1 ---
History and Physical Update Update Date/Time: 06/08/22 09:06 History and Physical has been reviewed, including an updated exam of the patient. There are NO changes in the patient's condition. Risks, benefits, and alternatives have been discussed and questions answered. Patient agrees to proceed with procedure.
[2022-06-08] MEDS: LACTATED RINGERS 1,000 ML 30 ML IV CONT (09:40)
[2022-06-08] MEDS: KETOROLAC 15 MG/ML VIAL (*BKC) IV PUSH (09:45)
[2022-06-08] MEDS: ACETAMINOPHEN 500 MG TABLET 1000 MG PO (09:45)
[2022-06-08] MEDS: ceFAZolin 2 GM/D5W 50 ML 2 GM/50 ML BAG IVPB (10:20)
[2022-06-08] MEDS: LIDOCAINE HCL 1% LOCAL INJ 20 ML VIAL INFILTRATE (10:39)
--- NOTE | 2022-06-08 11:18 | P.OP_ITS ---
Procedure Note - Detailed Date of Procedure 06/08/22 Pre-op Diagnosis left knee meniscus tear Post-op Diagnosis Same Procedure Performed left knee arthroscopy, partial medial meniscectomy Surgeon Fred Jarrett MD Anesthesia General Description of Procedure The patient was identified and proper site identified and she was taken to the operating room, transferred to the OR table placing her supine taking care to pad the torso and extremities. After general anesthetic induction and intubation, a nonsterile tourniquet was placed high on the left thigh but was not inflated. The left lower extremity was positioned, prepped and draped in usual sterile fashion. 10 cc of 1% lidocaine was injected into the subcutaneous tissue in the area of the portals at start of the procedure, and an additional 10 at the end. The portals were established and the arthroscopy was carried out. There was chronic synovial irritation noted throughout the knee. There was extensive grade 2 and three degenerative changes articular surface medial compartment and grade 3 changes order and grade 4 the patellofemoral articulation. The articular and meniscal cartilage in the lateral compartment showed minimal fraying and fibrillation. Anterior posterior cruciate ligaments were in continuity. There was complex tearing of the medial meniscus from the posterior horn well into the midbody. This was contoured back to stable rim with basket forceps and a shaver. The ArthroCare Wand was used for intra- articular hemostasis. The knee was flushed with a copious amount of arthroscopic fluid and equipment was removed. Portals were closed with three O nylon suture and a sterile dressing was applied. She tolerated the procedure well, was awakened, extubated and taken to recovery area in stable condition. There were no known intraoperative complications. Estimated blood loss was negligible; she received perioperative antibiotics. Estimated Blood Loss -10.0 Tourniquet Time 0 Drains No Packing No Pathology None sent Complications No immediate complications Condition Stable Disposition PACU [facility] Billing Surgery - Charge Forward: Surgery Billing ([id number])
--- NOTE | 2022-06-08 11:51 | SUR.PHASEI ---
1150: Simple mask removed.
== END 2022-06-08 13:16 | disposition home or self-care (01) ==
PROVIDERS: PCP Family Medicine Adolescent Medicine; Visit Provider Orthopaedic Surgery
PROC: (CPT 29870; principal; 2022-06-08 11:00)
DX: M23.322 Other meniscus derangements, posterior horn of medial meniscus, left knee (principal); M65.862 Other synovitis and tenosynovitis, left lower leg; M17.12 Unilateral primary osteoarthritis, left knee; G62.9 Polyneuropathy, unspecified; E66.9 Obesity, unspecified; Z68.31 Body mass index [BMI] 31.0-31.9, adult
CPT/HCPCS: 29881; A9270; J0690; J1100; J1885; J2250; J2370; J2405; J2704; J3010; J7120